=== PATIENT | female | born 1950 | race Caucasian/White ===

== ENCOUNTER 2024-03-31 13:37 | Outpatient (CLI) | payer MEDICARE, SELFPAY ==
--- NOTE | ~2024-03-31 | DEXA_ITS ---
Bone Density Report Name: MARIVEL WISEMAN Age: 73 Sex: Female Ethnicity: White Date of : 1950 Indication: postmenopausal; screening for osteoporosis; parental hip fracture; Referring Provider: BRIANA FERNANDEZ Study: Bone densitometry was performed. Exam Date: March 31, 2024 Accession number: [id number] Bone Density: Region BMD T-score Z-score Classification AP Spine(L1-L4) 0.811 -2.1 0.1 Osteopenia Femoral Neck (Left) 0.732 -1.1 0.9 Osteopenia Total Hip (Left) 0.780 -1.3 0.4 Osteopenia Femoral Neck (Right) 0.698 -1.4 0.6 Osteopenia Total Hip (Right) 0.854 -0.7 1.0 Normal Total Hip Mean 0.817 -1.0 0.7 Normal World Health Organization criteria for BMD impression classify patients as: Normal (T-score at or above -1.0), Osteopenia (T-score between -1.0 and -2.5), or Osteoporosis (T-score at or below -2.5). 10-year Fracture Risk: FRAX not reported because: Treated for osteoporosis Clinical Information Provided by Patient: Parent has had a hip fracture Is being treated for osteoporosis Has used the following medications: Boniva (i.e. ibandronate), Vitamin D, Calcium Patient maximum height was 65 Menopause Age: 50 Drinks caffeinated beverages Onset of menses at age 16 Number of children 2 Missed period for more than 6 months in a row Impression: The patient has low bone mass, based on the Total Spine T-score. The patient has risk factors, including: parental hip fracture. Discussion: It is important to ask patients whether they are taking their medications and to encourage continued and appropriate compliance with their osteoporosis therapies to reduce fracture risk. It is also important to review their risk factors and encourage appropriate calcium and vitamin D intakes, exercise, fall prevention and other lifestyle measures. Follow-Up: Consider a repeat BMD and Vertebral Fracture Assessment (VFA) exam in 2 years or sooner if medically necessary, to reassess this patient's status. Reported by: LUL on 03/31/2024 2:24:00 PM. Reviewed, dictated and finalized at location [facility]
--- OUTSIDE RECORDS SUMMARY | 2024-03-31 14:29 | XMS_ITS | Encounter Summary ---
Author Organization [facility] Address [address] [facility] [place] [address] [place] [address] Care Team Providers Care Mva Reactor Operator Head Name Role Phone Christina Solis NP Primary Care Provider [phone] Michael Rodriguez MD Unavailable Lanie Razo [facility] Primary Care Provider + Lanie Razo [facility] Primary Care Provider + Encounter Details Date Type Department Care Team (Late st Contact Info) Description 10/03/2019 Prep for Procedure [facility] [place], [place] [id number] Vadim Wyatt MD [address] [id number] Social History Tobacco Use Types Packs/Day Years Used Date Smoking Tobacco: Former Cigarettes Q uit: 1994 Smokeless Tobacco: Never Alcohol Use Standard Drinks/Week Comments No 0 (1 standard drink = 0.6 oz pur e alcohol) AUDIT-C Answer Date Recorded Frequency of Alcohol Consumption Never 02/03/2019 Average Number of Drinks Not on file 019 Frequency of Binge Drinking Not on file 04/2018 Comments Unknown Sex and Gender Information Value Date Recorded Sex Assigned at Not on file Legal Sex Female 5:04 PM CDT Gender Identity Not on file Sexual Orientation Not on file Occupation Industry Job Start Date Job End Date Not on file Not on file Not on file Not on file Not on file Not on file Not on file Not on file COVID-19 Exposure Response Date Recorded In the last month, have you been in contact with someone who was confirmed or suspected to have Coronavirus / COVID-19? No / Unsure 10/06/2019 8:33 AM CDT documented as of this encounter Plan of Treatment Upcoming Encounters Date Type Department Care Team (Late st Contact Info) Description 04/14/2024 12:15 PM SLING OPERATOR Office Visit [facility] THREE [facility] [address] [facility] [address] [place], [place] [id number] Bob Hinton NP Three [facility] [address] [place], [place] [id number] documented as of this encounter Results * PRE-SURGICAL/PRE-PROCEDURE CORONAVIRUS (COVID 19) (10/03/2019 2:00 PM CDT) Pathologist [facility] CORONAVIRUS SARS COV 2 PCR (RESP) NOT DETECTED NOT DETECTED 10/05/2019 10:52 AM CDT [facility] Comment: A Not Detected (negative) test result for this test means that SARS- CoV-2 RNA was not present in the specimen above the limit of detection. A negative result does not rule out the possibility of COVID-19 and should not be used as the sole basis for treatment or patient management decisions. ??If COVID-19 is still suspected, based on exposure history together with other clinical findings, re-testing should be considered in consultation with public health authorities. Laboratory test results should always be considered in the context of clinical observations and epidemiological data in making a final diagnosis and patient management decisions. Please review the Fact Sheets and FDA authorized labeling available for health care providers and patients using the following websites: https://www.[employer].com/home/Covid-19/HCP/Quest[employer]/fact- sheet.html https://www.[employer]/home/Covid-19/Patients/ Quest[employer]/fact-sheet.html This test has been authorized by the FDA under an Emergency Use Authorization (EUA) for use by authorized laboratories. Due to the current public health emergency, [facility] is receiving a high volume of samples from a wide variety of swabs and media for COVID-19 testing. In order to serve patients during this public health crisis, samples from appropriate clinical sources are being tested. Negative test results derived from specimens received in non-commercially manufactured viral collection and transport media, or in media and sample collection kits not yet authorized by FDA for COVID-19 testing should be cautiously evaluated and the patient potentially subjected to extra precautions such as additional clinical monitoring, including collection of an additional specimen. Methodology: ??Nucleic Acid Amplification Test (NAAT) includes PCR or TMA Additional information about COVID-19 can be found at the [facility] website: www.[employer]/Covid19. Test performed at [facility] [place] [id number] [place] [address] ??[id number] Director: MADISON WELLINGTON DO,MPH NASOPHARYNGEAL SWAB / Unknown 10/03/2019 2:00 PM CDT us Vadim Wyatt MD MICROBIOLOGY - GENERAL SEPIDEH HEREDIA Final Result [facility] [address] [address], documented in this encounter Visit Diagnoses Diagnosis Encounter for screening colonoscopy- Primary Special screening for malignant neoplasms, colon documented in this encounter Additional Health Concerns Infection Onset Date Last Indicated Resolved Time COVID-19 Rule Out 10/03/2019 10/03/2019 10/05/2019 10:53 AM CDT documented as of this encounter Care Teams Mva Reactor Operator Head Relationship Specialty Start Date End Date Christina Solis NP [facility] [place] [address] PCP - General NURSE PRACTITIONER 01/24/19 01/02/22 Lanie Razo FNP- [address] [place] [id number] PCP - General NURSE PRACTITIONER 01/03/22 06/04/23 Lanie Razo, COIN MACHINE ASSEMBLER- [facility] [place] [address] PCP - General Nurse Practitioner Family 06/05/23 Michael Rodriguez MD [id number] [place] [address] EP Medical Assistant Ob Gyn CLINICAL CARDIAC ELECTROPHYSIOLOGY 01/27/19 documented as of this encounter
--- OUTSIDE RECORDS SUMMARY | 2024-03-31 14:29 | XMS_ITS | Clinical Summary ---
Author Organization [facility] Address [address] [facility] [place] [address] [place] [address] Care Team Providers Care Hot Dog Vendor Name Role Phone Michael Rodriguez MD Unavailable Lanie Razo [facility] Primary Care Provider + Allergies Active Allergy Reactions Criticality Noted Date Comments Amitriptyline Unknown 01/20/2022 Gabapentin Unknown 01/20/2022 Nickel Itching Low 09/29/2021 Nsaids Other (see comment) 10/18/2011 H/O IRRITATED STOMACH AND DIGESTIVE TRACT Promethazine Other (see comment) Low 08/18/2021 Restless legs RSL Medications celecoxib 100 MG capsule Take 1 capsule by mouth 2 (two) times a day. 9 Active esomeprazole 40 MG capsule Take 1 capsule by mouth daily as needed. 9 Active ezetimibe 10 MG tablet Take 1 tablet by mouth every evening. 9 Active traMADol 50 MG tablet Take 50 mg by mouth 2 (two) times a day. Active ibandronate (BONIVA) 150 MG tablet ibandronate 150 mg tablet Active aspirin EC (ECOTRIN) 81 MG tablet Take 1 tablet (81 mg total) by mouth daily. 100 tablet 2 Active atorvastatin (LIPITOR) 40 MG tablet TAKE 1 TABLET(40 MG) BY MOUTH EVERY NIGHT AT BEDTIME 90 tablet 1 3 Active alendronate (FOSAMAX) 70 MG tablet Take 1 tablet (70 mg total) by mouth once a week. 4 Active losartan (COZAAR) 100 MG tablet Take 1 tablet (100 mg total) by mouth daily. NEW DOSE 90 tablet 1 4 Active metoprolol succinate ER (TOPROL-XL) 25 MG 24 hr tablet Take 1 tablet (25 mg total) by mouth daily. Dose increased 07/24/23 90 tablet 1 4 Active tiZANidine (ZANAFLEX) 4 MG tablet Take 1 tablet (4 mg total) by mouth as needed. 4 Active zolpidem (AMBIEN) 5 MG tablet Take 1 tablet (5 mg total) by mouth nightly as needed. 4 Active DULoxetine (CYMBALTA) 60 MG capsule Take 1 capsule (60 mg total) by mouth daily. 4 Active amLODIPine (NORVASC) 10 MG tablet TAKE 1 TABLET(10 MG) BY MOUTH DAILY 30 tablet 5 4 Active Active Problems Problem Noted Date Diagnosed Date Calcification of coronary artery 12/14/2021 Snoring 08/17/2021 Sinusitis 08/17/2021 Shoulder injury 08/17/2021 Primary fibromyalgia syndrome 08/17/2021 Osteopenia 08/17/2021 Osteoarthrosis 08/17/2021 Motion sickness 08/17/2021 Low back pain 08/17/2021 Fatigue 08/17/2021 Depressive disorder 08/17/2021 Arthritis of carpometacarpal (CMC) joint of left thumb 08/17/2021 Anxiety 08/17/2021 Solitary pulmonary nodule 11/09/2020 Osteoporosis 06/10/2020 Vulvovaginitis 12/10/2018 Acne 12/10/2018 Localized adiposity 06/28/2011 Lipoma of back 06/28/2011 Excess skin of abdomen 06/28/2011 Breast ptosis 06/28/2011 Sacroiliitis, not elsewhere classified 1 Palpitations Hyperlipidemia Hypertension GERD (gastroesophageal reflux disease) Immunizations Name Administration Dates Next Due COVID-19 Vaccine (Generic) 01/10/2022 Fluzone High Dose - >Age 65 (Prefilled Syringe) 12/09/2018,12/04/2017,12/26/2016 Influenza (Generic) 12/25/2013,12/20/2012 Influenza Adult (Generic) 12/13/2021,,12/06/2017,2015,12/10/2014 PFIZER COVID-19 (ORIGINAL FORMULATION, PURPLE CAP) mRNA, LNP-S, PF, 30 MCG/0.3 ML DOSE 05/03/2020 Pneumococcal (Pneumovax 23) 01/02/2020 Pneumococcal (Prevnar 13) 12/09/2018 Tdap (Generic) 12/25/2013 Family History Medical History Relation Comments Diabetes Brother Diabetes Father Heart Attack Father Afib Mother CHF Mother COPD Mother Diabetes Sister 1 Heart Attack Sister 1 Open Heart Sister 1 Stroke Sister 1 Heart Attack Sister 2 Relation Status Comments Brother Alive Father (Age 51) Maternal Grandfather Maternal Grandmother Mother (Age 92) Paternal Grandfather Paternal Grandmother Sister 1 (Age 67) Sister 2 Alive Social History Tobacco Use Types Packs/Day Years Used Date Smoking Tobacco: Former Cigarettes Q uit: 1994 Smokeless Tobacco: Never Tobacco Cessation:Counseling Given: Not Answered Alcohol Use Standard Drinks/Week Comments No 0 [...] file Not on file Not on file Last Filed Vital Signs Vital Sign Reading Time Taken Comments Blood Pressure 124/70 10/09/2023 1:31 PM CDT Pulse 73 10/09/2023 1:31 PM CDT Temperature 36.7 ??C (98 ??F) 10/06/2019 10:29 AM CDT Respiratory Rate 17 10/06/2019 10:29 AM CDT Oxygen Saturation 94% 10/09/2023 1:31 PM CDT Inhaled Oxygen Concentration - - Weight 76.2 kg (168 lb) 10/09/2023 1:31 PM CDT Height 165.1 cm (5' 5 ) 10/09/2023 1:31 PM CDT Body Mass Index 27.96 10/09/2023 1:31 PM CDT Plan of Treatment Upcoming Encounters Date Type Department Care Team (Late st Contact Info) Description 04/14/2024 12:15 PM COMMUNITY SUPPORT WORKER Office Visit [facility] [address] [facility] [address] [place] [place] [address] Bob Hinton, DYLAN [address] [place] [address] [place] [address] Health Maintenance Due Date Last Done Comments ASCVD Statin 1950 PHQ-2 (Physician [place]) 1962 Hepatitis C 1968 Zoster Vaccines (1 of 2) 2000 RSV Immunization or 60+ Years (1 - Risk 60-74 years 1-dose series) 2010 Annual Medicare Wellness Visit 12/24/2015 Dexa Scan (General) 12/24/2015 Mammogram Screening 04/30/2022 04/30/2020, 03/14/2019, 08/14/2017 COVID-19 Vaccine ( - season) 2023 01/10/2022, 05/03/2020 Influenza Adult (#1) 2023 12/13/2021, 12/02/2019, 12/09/2018, Additional history exists DTaP, Tdap and Td Vaccines (2 - Td or Tdap) 12/26/2023 12/25/2013 PHQ-2 (Physician [place]) 03/05/2024 Colorectal Cancer Screening Colonoscopy (10 Years) 10/05/2029 10/06/2019, 10/06/2019 Pneumococcal Vaccine: 65+ Years Completed 01/02/2020, 12/09/2018 Meningococcal B Vaccine Aged Out No l onger eligible based on patient's age to complete this topic Meningococcal Vaccine Aged Out No jenifer geno eligible based on patient's age to complete this topic RSV Immunizations Under 20 Months Aged Out No longer eligible based on patient's age to complete this topic Procedures Procedure Name Priority Date/Time Associated Diagnosis Comments COLONOSCOPY Routine 10/06/2019 9:44 AM CDT from Last 3 Months or Most Recently Relevant to Health Maintenance Results * Colonoscopy (10/06/2019 9:44 AM CDT) Mindy Lagunas MD - 10/06/2019 9:44 AM CDT Mindy Wyatt MD ? 10/06/2019 10:08 AM MINDY WYATT MD, FACG, FACP COLONOSCOPY This is a 68-year-old female with history of Tonsillectomy, uterine polypectomy, bilateral carpal tunnel, breast lift, face lift, tummy tuck, HTN, HLN, anxiety, sleep issues, headaches chronic pain, fibromyalgia, IHSAN (no CPAP) and palpitations who now presents for colonoscopy to screening for colon cancer. ?? GI review of systems is negative. ??No endocarditis risk factors. Allergies Allergen Reactions ? ? Nsaids Other (see comment) ??H/O IRRITATED STOMACH AND DIGESTIVE TRACT Medications: see list. Family history: negative for colon cancer. WDWN patient in NAD. VITALS: Stable. LUNGS: Clear. HEART: RRR S1/S2 normal. ABDOMEN: NABS/NT. The procedure of colonoscopy, ??its indications, ??alternatives of barium studies and risks including perforation, bleeding, infection, reaction to medication as well as the possible need for blood or surgery were discussed with the patient prior to the procedure. The patient voices understanding, agrees to proceed and provides informed consent. COLONOSCOPY INDICATION: Screening for colon cancer. ?? POST-OP: One polyp removed. SEDATION: Per Anesthesia PREP: Good. With the patient in the left lateral decubitus position, the Olympus [id number] ??colonoscope was introduced into the rectum and advanced easily to the Terminal Ileum. Careful inspection of the mucosa was made upon insertion and withdrawal of the endoscope. FINDINGS: Terminal ileum: distal 5 cm normal. Cecum, ascending colon, descending colon, sigmoid colon and rectum including retroflexion normal. Transverse colon: 7 mm sessile polyp removed with cold biopsy forceps. No masses, AVMs, colitis or diverticulosis seen. No complications, blood loss or implants. ASSESSMENT AND PLAN: One polyp removed: if adenomatous repeat colonoscopy in five years otherwise screening colonoscopy in 10 years. Thank you for allowing me to care for your patient. She will follow-up with DYLAN Solis as needed. Mindy Wyatt M.D. us Mindy Wyatt MD GI PROCEDURE ORDERABLES Fin al Result from Last 3 Months or Most Recently Relevant to Health Maintenance Insurance AETNA AETNA Care Teams Hot Dog Vendor Relationship Specialty Start Date End Date Lanie Razo, TRUCK LOADER OVERHEAD CRANE- [facility] [place] [address] PCP - General Nurse Practitioner Family 06/05/23 Michael Rodriguez MD [facility] [address] [place] [address] EP Geriatric Physical Therapist CLINICAL CARDIAC ELECTROPHYSIOLOGY 01/27/19
--- OUTSIDE RECORDS SUMMARY | 2024-03-31 14:30 | XMS_ITS | Clinical Summary ---
Author Organization [facility] Address [address] [facility] [place] [address] Care Team Providers Care Group Exercise Class Instructor Name Role Phone Violette Jones MD Primary Care Provider [phone] [facility],non-owned Affiliates and Associated Physician Practices is amultiple site organization consisting of ambulatory clinics and hospital sitesin [place], [place], [place] and [place]. This disclosure is being madepursuant to the Care Everywhere program and may not contain all information available regarding this patient. Last updated 17.[employer] [facility] Allergies No known active allergies Medications * Be aware that medications may not be up to date on this document. Alwaysverify current medications with the patient. Medication Sig Dispensed Refills Start Date End Date Status TRAMADOL HCL PO Take 50 mg by mouth 3 times daily as needed. Active Cyclobenzaprine HCl (FLEXERIL PO) Active DULoxetine HCl (CYMBALTA PO) Take 60 mg by mouth once. Active Ezetimibe-Simvastatin (VYTORIN PO) Active RAMIPRIL PO Take 2.5 mg by mouth once. Active Esomeprazole Magnesium (NEXIUM PO) Active Flaxseed, Linseed, (FLAXSEED OIL PO) Active Multiple Vitamin (MULTI-VITAMIN PO) Active Calcium Carbonate-Vit D-Min (CALCIUM 1200 PO) A ctive Cyanocobalamin (VITAMIN B-12 PO) Active Cholecalciferol (VITAMIN D3 PO) Active Active Problems Problem Noted Date Diagnosed Date Sacroiliitis, not elsewhere classified 1 Social History Tobacco Use Types Packs/Day Years Used Date Smoking Tobacco: Never Alcohol Use Standard Drinks/Week Comments No 0 (1 standard drink = 0.6 oz pur e alcohol) Sex and Gender Information Value Date Recorded Sex Assigned at Not on file Gender Identity Not on file Sexual Orientation Not on file Last Filed Vital Signs Vital Sign Reading Time Taken Comments Blood Pressure 126/84 03/24/2011 2:04 PM FINE DINING SERVER Pulse 90 03/24/2011 2:04 PM FINE DINING SERVER Temperature 36.8 ??C (98.3 ??F) 03/24/2011 2:04 PM CS T Respiratory Rate 16 03/24/2011 2:04 PM FINE DINING SERVER Oxygen Saturation 100% 03/24/2011 2:04 PM FINE DINING SERVER Inhaled Oxygen Concentration - - Weight 74.8 kg (165 lb) 03/03/2011 2:24 PM FINE DINING SERVER Height 165.1 cm (5' 5 ) 03/03/2011 2:24 PM FINE DINING SERVER Body Mass Index 27.46 03/03/2011 2:24 PM FINE DINING SERVER Plan of Treatment Health Maintenance Due Date Last Done Comments BONE DENSITY TESTING 1950 COLOGUARD (AGES 45-75) - COL ON CA SCREENING 1950 COLON MONITORING 1950 COLONOSCOPY - COLON CA SCREENING 1950 CT COLONOGRAPHY - COLON CA SCREENING 1950 Colorectal Cancer Screening 1950 FIT - COLON CA SCREENING 1950 FLEX SIG - COLON CA SCREENING 1950 MAMMOGRAM 1950 HEPATITIS C SCREENING 12/18/1968 DTAP/TDAP/TD VACCINES (1 - Tdap) 1969 PNEUMOCOCCAL VACCINE 50+ (1 of 1 - PCV) 2000 ZOSTER VACCINE (1 of 2) 2000 COVID-19 VACCINE ( - 2023-2 5 season) 2023 INFLUENZA VACCINE (#1) 2023 DEPRESSION SCREENING 03/05/2024 Respiratory Syncytial Virus (RSV) Vaccine Pt: or over 60 yrs (1 - 1-dose 75+ series) 2025 HEPATITIS B VACCINE Aged Out No longe r eligible based on patient's age to complete this topic HIB VACCINE Aged Out No longer eligi ble based on patient's age to complete this topic HPV VACCINE Aged Out No longer eligi ble based on patient's age to complete this topic MENINGOCOCCAL (Group B) VACCINE Aged Out No longer eligible based on patient's age to complete this topic MENINGOCOCCAL VACCINE Aged Out No jenifer geno eligible based on patient's age to complete this topic Care Teams Group Exercise Class Instructor Relationship Specialty Start Date End Date Violette Jones MD [address] [address] PCP - General Family Medicine 02/14/11
--- OUTSIDE RECORDS SUMMARY | 2024-03-31 14:30 | XMS_ITS | CONTINUITY OF CARE DOCUMENT ---
Author Name zoila cummings Address Unknown Organization [facility] Address [address] [facility] [address] [place] [address] Phone [phone] Care Team Providers Care Associate Professor Physician Name Role Phone Melissa WAHL, [facility] Unavailable [phone] ADARSH CARROLL MD Unavailable ADARSH CARROLL MD Unavailable [phone] INSURANCE PROVIDERS Payer name Policy type / Coverage type [employer] party ID [facility] [id number] 1
--- OUTSIDE RECORDS SUMMARY | 2024-03-31 14:30 | XMS_ITS | Patient Health Summary ---
Author Organization [facility] Address [address] [place] [address] Care Team Providers Care Lumber Scaler Name Role Phone Violette Jones MD Primary Care Provider [phone] Note from [facility],non-owned Affiliates and Associated Physician Practices is amultiple site organization consisting of ambulatory clinics and hospital sitesin [place], [place], [place] and [place]. This disclosure is being madepursuant to the Care Everywhere program and may not contain all information available regarding this patient. Last updated 17.[facility] Allergies No known active allergies Medications * Be aware that medications may not be up to date on this document. Alwaysverify current medications with the patient. * TRAMADOL HCL PO Take 50 mg by mouth 3 times daily as needed. * Cyclobenzaprine HCl (FLEXERIL PO) * DULoxetine HCl (CYMBALTA PO) Take 60 mg by mouth once. * Ezetimibe-Simvastatin (VYTORIN PO) * RAMIPRIL PO Take 2.5 mg by mouth once. * Esomeprazole Magnesium (NEXIUM PO) * Flaxseed, Linseed, (FLAXSEED OIL PO) * Multiple Vitamin (MULTI-VITAMIN PO) * Calcium Carbonate-Vit D-Min (CALCIUM 1200 PO) * Cyanocobalamin (VITAMIN B-12 PO) * Cholecalciferol (VITAMIN D3 PO) Active Problems Problem Noted Date Diagnosed Date [...] Comments Blood Pressure 126/84 03/24/2011 2:04 PM MOLDER BENCH Pulse 90 03/24/2011 2:04 PM MOLDER BENCH Temperature 36.8 ??C (98.3 ??F) 03/24/2011 2:04 PM CS T Respiratory Rate 16 03/24/2011 2:04 PM MOLDER BENCH Oxygen Saturation 100% 03/24/2011 2:04 PM MOLDER BENCH Inhaled Oxygen Concentration - - Weight 74.8 kg (165 lb) 03/03/2011 2:24 PM MOLDER BENCH Height 165.1 cm (5' 5 ) 03/03/2011 2:24 PM MOLDER BENCH Body Mass Index 27.46 03/03/2011 2:24 PM MOLDER BENCH Procedures * PAIN MANAGEMENT PROCEDURE TIME(Performed 03/24/2011) * PAIN MANAGEMENT PROCEDURE TIME(Performed 03/03/2011) * EMG WITH NERVE CONDUCTION STUDY(Performed 02/24/2011) Performed for Intractable neuropathic pain of lower extremity Results * PAIN MANAGEMENT PROCEDURE TIME (03/24/2011 3:05 PM MOLDER BENCH) Only the most recent of2 resultswithin the time period is included. Anatomical Region Laterality Modality X-Ray Angiograph y Narrative 03/24/2011 6:02 PM MOLDER [facility]ENCH Sidra Saxenaaniel, RT(R) ? 03/24/2011 ??3:26 PM Fluoroscopically Guided Bilateral Sacroiliac Joint Injections The patient was identified in the holding area and the operative permit was explained and signed. I have discussed with the patient the risks, benefits, side effects and complications of a fluoroscopically guided sacroiliac joint injection. I have answered the patient's questions regarding the procedure and have given the patient the opportunity to refuse the procedure. I also have discussed alternative methods of treatment. The patient stated understanding of the procedure and wished to proceed with a fluoroscopically guided sacroiliac joint injection. The patient was taken to the fluoroscopic suite and placed on a C-arm table in the prone position and appropriate monitoring placed. A nurse was in attendance for the duration of the procedure to carefully monitor the patient. Please refer to the nursing record for vital sign documentation and for any doses of sedatives and medications. I was present and gave the order for any medications given to the patient. This procedure was performed on the bilateral sacroiliac joints. A sterile Betadine preparation and then a sterile drape were applied to the lumbosacral region of the back overlying the sacroiliac joint. Using fluoroscopic guidance, the sacroiliac joint was visualized in the AP oblique direction. A 22 gauge, 3.5-inch needle was placed in the inferior aspect of the sacroiliac joint. Next 1 cc of Omnipaque (240 mg/cc) was injected and intra-articular spread was confirmed under direct fluoroscopy. There was no evidence of intravascular or epidural spread. A preservative free mixture of 3 cc of 0.25% Bupivacaine and 40 mg of DepoMedrol 40 mg/cc was injected into the left sacroiliac joint. The needle was removed intact. Attention was then turned to the contralateral side where the procedure was repeated in an identical fashion. The patient tolerated the procedure well and there were no complications. The patient was taken to the recovery area. The patient remained in stable condition with no apparent complications. Post procedure instructions were given to the patient and a follow up appointment was confirmed. The patient was also discharged with information on how to reach the clinic or section crews activities clerk physician at anytime for questions or complaints. The patient was identified in the holding area and the operative permit was explained and signed. I have discussed with the patient the risks, benefits, side effects and complications of trigger point injections. I have answered the patient's questions regarding the procedure and have given the patient the opportunity to refuse the procedure. I also have discussed alternative methods of treatment. The patient stated understanding of the procedure and wished to proceed with trigger point injections. The patient was positioned on the table table in the prone position. The trigger points in the musculature was identified. Using a 27-gauge 1.5 inch needle, I injected 1 cc of a mixture of 5 cc of 1% lidocaine and 5 cc of 0.25% bupivacaine into the following muscles: erector spinae and gluteus minimus. The patient tolerated the procedure and no complications. Patient was given discharge instructions. Procedure Note Makeda Sidra, RT(R) - 03/24/2011 3:25 PM CST Fluoroscopically Guided Bilateral Sacroiliac Joint Injections The patientwas identified in the holding area and the operative permit was explainedand signed. I have discussed with the patient the risks, benefits, sideeffects and complications of a fluoroscopically guided sacroiliac jointinjection. I have answered the patient's questions regarding the procedureand have given the patient the opportunity to refuse the procedure. I alsohave discussed alternative methods of treatment. The patient statedunderstanding of the procedure and wished to proceed with afluoroscopically guided sacroiliac joint injection. The patient was takento the fluoroscopic suite and placed on a C-arm table in the proneposition and appropriate monitoring placed. A nurse was in attendance forthe duration of the procedure to carefully monitor the patient. Pleaserefer to the nursing record for vital sign documentation and for any dosesof sedatives and medications. I was present and gave the order for anymedications given to the patient. This procedure was performed on thebilateral sacroiliac joints. A sterile Betadine preparation and then asterile drape were applied to the lumbosacral region of the back overlyingthe sacroiliac joint. Using fluoroscopic guidance, the sacroiliac jointwas visualized in the AP oblique direction. A 22 gauge, 3.5-inch needlewas placed in the inferior aspect of the sacroiliac joint. Next 1 cc ofOmnipaque (240 mg/cc) was injected and intra- articular spread wasconfirmed under direct fluoroscopy. There was no evidence of intravascularor epidural spread. A preservative free mixture of 3 cc of 0.25%Bupivacaine and 40 mg of DepoMedrol 40 mg/cc was injected into the leftsacroiliac joint. The needle was removed intact. Attention was then turnedto the contralateral side where the procedure was repeated in an identicalfashion. The patient tolerated the procedure well and there were nocomplications. The patient was taken to the recovery area. The patientremained in stable condition with no apparent complications. Postprocedure instructions were given to the patient and a follow upappointment was confirmed. The patient was also discharged withinformation on how to reach the clinic or section crews activities clerk physician at anytimefor questions or complaints. The patient was identified in the holding area and the operative permitwas explained and signed. I have discussed with the patient the risks,benefits, side effects and complications of trigger point injections. Ihave answered the patient's questions regarding the procedure and havegiven the patient the opportunity to refuse the procedure. I also havediscussed alternative methods of treatment. The patient statedunderstanding of the procedure and wished to proceed with trigger pointinjections. The patient was positioned on the table table in the proneposition. The trigger points in the musculature was identified. Using q00-mksht 1.5 inch needle, I injected 1 cc of a mixture of 5 cc of 1%lidocaine and 5 cc of 0.25% bupivacaine into the following muscles:erector spinae and gluteus minimus. The patient tolerated the procedureand no complications. Patient was given discharge instructions. Claudy Pina MD DIAGNOSTIC IMAGIN G ORDERABLES * EMG WITH NERVE CONDUCTION STUDY (02/24/2011) Destin Burdick MD NEUROLOGY [facility] Teams Lumber Scaler Relationship Specialty Start Date End Date Violette Jones MD [address] [place] [address] [phone] PCP - General Family Medicine 02/14/11
--- OUTSIDE RECORDS SUMMARY | 2024-03-31 14:30 | XMS_ITS | Encounter Summary ---
Author Organization [facility] Address [address] [place] [address] [place] [address] Care Team Providers Care Motorcycle Delivery Driver Name Role Phone Michael Rodriguez MD Unavailable [facility] Primary Care Provider + Encounter Details Date Type Department Care Team (Late st Contact Info) Description 07/13/2023 Triparazzi Message Enc [facility], [address] [place], [place] [id number] Mel Etienne FNP [address] [facility] [address] [place], [place] [id number] Blood pressure readings after increasing amlodapine to 5mg. Social History Tobacco Use Types Packs/Day Years [...] file Not on file Not on file documented as of this encounter Progress Notes * ML Romo - 07/13/2023 12:29 PM CDT Guyy Ilsa her BP still above goal. Lets have her maximize her amlodipine. She has a 2.5 mg pills but is supposed to be taking 5 mg. I want her to take 10 mg daily. We can call in a new prescription with the 10 mg tablets for her thanks * Ilsa Fine RN - 07/13/2023 11:57 AM CDT See below and respond to patient thank you documented in this encounter Plan of Treatment Upcoming Encounters Date Type Department Care Team (Late st Contact Info) Description 04/14/2024 12:15 PM REGULATION SUPERVISOR Office Visit [facility] [facility], [facility] [address] [place] [address] Bob Hinton, DYLAN [facility] [address] [place] [address] documented as of this encounter Visit Diagnoses Not on filedocumented in this encounter Care Teams Motorcycle Delivery Driver Relationship Specialty Start Date End Date Lanie Razo, ML- [address] [place] [phone] PCP - General Nurse Practitioner Family 06/05/23 Michael Rodriguez MD [facility]. [facility] [address] [place] [address] EP Insurance Loss Assessor CLINICAL CARDIAC ELECTROPHYSIOLOGY 01/27/19 documented as of this encounter
--- OUTSIDE RECORDS SUMMARY | 2024-03-31 14:30 | XMS_ITS | Clinical Summary ---
Author Organization [facility] Address [address] [place] [address] Phone Care Team Providers Care Per Diem Physical Therapist Name Role Phone Unavailable Primary Care Provider Unavailabl e Allergies Active Allergy Reactions Criticality Noted Date Comments Nickel Itching Low 09/29/2021 Nsaids (Non-Steroidal Anti-Inflammatory Drug) Other (See Comments) 10/18/2011 H/O IRRITATED STOMACH AND DIGESTIVE TRACT Phenergan Plain Other (See Comments) 09/29/2021 RSL Medications traMADol (ULTRAM) 50 mg Oral tablet Take 50 mg by mouth. PRN Active cyclobenzaprine (FLEXERIL) 5 mg Oral Tab Take 5 mg by mouth 3 times daily as needed. Active ALPRAZolam (XANAX) 0.5 mg Oral tablet Take 0.5 mg by mouth nightly as needed. Active DULoxetine (CYMBALTA) 60 mg Oral CpDR Take 60 mg by mouth daily. Active cyanocobalamin 1,000 mcg Oral Tab Take 1,000 mcg by mouth daily. Active esomeprazole (NEXIUM) 20 mg Oral CpDR Take 20 mg by mouth nightly as needed. Active polycarbophil calcium (FIBERCON) 625 mg Oral tablet Take 625 mg by mouth daily. Active EZETIMIBE/SIMVA STATIN (VYTORIN 10-20 ORAL) Take by mouth daily at bedtime. Active ramipril (ALTACE) 10 mg Oral capsule Take 10 mg by mouth daily. Active pregabalin (LYRICA) 75 mg Oral Cap Take 75 mg by mouth every 12 hours. Active vitamin B complex Tablet Take 1 Tab by mouth daily. Active multivitamin (DAILY-HILARIO) Oral tablet Take 1 Tab by mouth daily. Active ascorbic acid (VITAMIN C) 500 mg Oral tablet Take 1,000 mg by mouth daily. Active cholecalciferol , Vitamin D3, (VITAMIN D3) 1,000 unit Oral Cap Take by mouth daily. Active OTHER Provider please include Medication name, dose, route and frequency- NASAL SPRAY ; 2 SPRAYS PRN Active oxyCODONE-aceta minophen (PERCOCET) 5-325 mg Oral tablet Take 1 Tab by mouth every 4 hours as needed for Pain, Moderate (For Pain Scale 4-6). 30 Tab 0 2 Active diazepam (VALIUM) 2 mg Oral tablet Take 1 Tab by mouth every 6 hours as needed for Spasm. 20 Tab 1 2 Active cephALEXin (KEFLEX) 500 mg Oral capsule Take 1 Cap by mouth 4 times daily. 20 Cap 0 2 Active metoprolol tartrate (LOPRESSOR) 25 mg tablet Take 25 mg by mouth daily. Active celecoxib (CeleBREX) 100 mg capsule Take 100 mg by mouth 2 times daily. Active phenazopyridine HCl (AZO ORAL) Take by mouth 2 times daily. Active docusate sodium (COLACE ORAL) Take by mouth 1 time daily as needed. 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 Gender Identity Not on file Sexual Orientation Not on file Occupation Industry Job Start Date Job End Date Not on file Not on file Not on file Not on file Last Filed Vital Signs Vital Sign Reading Time Taken Comments Blood Pressure 155/89 10/21/2021 6:40 PM CDT Pulse 72 10/21/2021 6:40 PM CDT Temperature 36.2 ??C (97.2 ??F) 10/21/2021 6:40 PM CD T Respiratory Rate 18 10/21/2021 6:40 PM CDT Oxygen Saturation 97% 10/21/2021 6:40 PM CDT Inhaled Oxygen Concentration - - Weight 73.3 kg (161 lb 9.6 oz) 10/21/2021 10:03 AM CDT Height 165.1 cm (5' 5 ) 10/21/2021 10:03 AM CDT Body Mass Index 26.89 10/21/2021 10:03 AM CDT Plan of Treatment Health Maintenance Due Date Last Done Comments COLORECTAL SCREENING 12/24/1995 Colorectal Cancer Screening 12/24/1995 FIT-DNA Q 3 years 12/24/1995 FIT/FOBT Q 1 year 12/24/1995 Flex Sig/CT Colonography Q 5 years 12/24/1995 ZOSTER VACCINE (1 of 2) 2000 OSTEOPOROSIS SCREENING 12/24/2015 BREAST CANCER SCREENING 03/14/2020 03/14/19, 08/14/2017, 05/22/2014 PNEUMOCOCCAL VACCINE 65+ YEA RS (2 of 2 - PCV) 01/01/2021 01/02/2020 INFLUENZA VACCINE (#1) 2023 , 12/06/2017, 12/10/2015, Additional history exists DTAP/TDAP/TD VACCINES (2 - T d or Tdap) 12/26/2023 12/25/2013 RSV VACCINE (60+ or ) (1 - 1-dose 75+ series) 2025 Medical Devices Implanted Type Area Windows Laptop Technician Device Identifier Shelf Expiration Date Model / Serial / Lot Tooth-Lower Mouth Advance Directives For more information, please contact: [phone] * Full Code (Latest Code Status on File) Date Activated Date Inactivated Comments 10/21/2021 4:24 PM 10/21/2021 9:43 PM * Full Code Date Activated Date Inactivated Comments 10/21/2021 10:17 AM 10/21/2021 4:24 PM * Full Code Date Activated Date Inactivated Comments 10/23/2011 2:56 PM 10/23/2011 8:54 PM * Full Code Date Activated Date Inactivated Comments 10/23/2011 1:13 PM 10/23/2011 2:56 PM * Full Code Date Activated Date Inactivated Comments 10/23/2011 11:10 AM 10/23/2011 1:13 PM
--- OUTSIDE RECORDS SUMMARY | 2024-03-31 14:30 | XMS_ITS | Data Portability ---
Author Organization [place] [facility] [employer], Main Office Address [address] [place] [address] Assessment No assessment recorded. Plan of Treatment Reminders Order Date Submit Date Provider Last Modified By Organization Details Last Modified Time Details Appointments None recorded. Lab None recorded. Referral None recorded. Procedures None recorded. Surgeries None recorded. Imaging US, abdomen + pelvis - lower abdomen bilateral lumps- tender to touch, large and small on left and large on right. Hernias? Cyst? 2022 023 [email or web address] Not available 3 10:33:15 Medication Orders Solu-Medrol (PF) 125 mg/2 mL solution for injection 2022 023 Not available 3 14:08:34 celecoxib 100 mg capsule 2022 023 [email or web address], [address], [place], [place], [id number], 3 14:52:04 tramadol 50 mg tablet 2022 023 [email or web address], [address], [place], [place], [id number], 3 14:52:06 atorvastati n 40 mg tablet 2022 023 [email or web address], [address], [place], [place], [id number], 3 14:52:05 tramadol 50 mg tablet 2022 023 [email or web address] #[email or web address], [address], [place], [place], [id number], 14:37:37 celecoxib 100 mg capsule 2022 023 [email or web address], [address], [place], [place], [id number], 14:37:35 Patient TargetsNo targets recorded. Patient Instructions Encounter Date Encounter Id Patient Instructions Last Modified By Organization Details Last Modified Time 08/24/2022 [id number] Fu in 6 mo for check up htn, lipid, osteoarthritis, osteopenia, gerd, depression/anxiet y. Not available 08/24/2022 14:53:37 02/22/2023 [id number] Fu in 6 mo for check up htn, lipid, osteoarthritis, osteopenia, gerd, depression/anxiet y. 02/22/23 pt aware of Jim departure. Not available 02/22/2023 14:37:05 Reason for Referral None Reported. Results Created Date Observation Date Name Description Value Unit Range Abnormal Flag Note LastModifiedBy Organization Detail LastModifiedTime 06/06/1906/05/2022 CBC W/O DIFFE RENTI AL white blood cells 5.3 x10'3 /uL 4.2-10 .8 Not Available [facility] (Lab) [address] [place], [address], 06/05/2022 20:51:16 06/06/19 23 06/05/2022 CBC W/O DIFFE RENTI AL red blood cells 4.92 x10'6 /uL 3.80-5 .20 Not Available [facility] (Lab) [address] [place], [address], 06/05/2022 20:51:16 06/06/19 23 06/05/2022 CBC W/O DIFFE RENTI AL hemoglobin 14.1 g/dL 12.0-1 5.6 Not Available [facility] (Lab) [address] [place], [address], 06/05/2022 20:51:16 06/06/19 23 06/05/2022 CBC W/O DIFFE RENTI AL hematocrit 43.9 % 35.7-4 5.7 Not Available [facility] (Lab) [address] [place], [address], 06/05/2022 20:51:16 06/06/19 23 06/05/2022 CBC W/O DIFFE RENTI AL mean red cell volume 89.2 fL 82.0-9 9.0 Not Available [facility] (Lab) [address] [place], [address], 06/05/2022 20:51:16 06/06/19 23 06/05/2022 CBC W/O DIFFE RENTI AL mean red cell hemoglobin 28.7 pg 27.0-3 3.0 Not Available [facility] (Lab) [address] [place], [address], 06/05/2022 20:51:16 06/06/19 23 06/05/2022 CBC W/O DIFFE RENTI AL mean RBC HGB concentratio n 32.1 g/dL 31.0-3 6.0 Not Available [facility] (Lab) [address] [place], [address], 06/05/2022 20:51:16 06/06/19 23 06/05/2022 CBC W/O DIFFE RENTI AL red cell distribution width 13.5 % 11.8-1 5.5 Not Available [facility] (Lab) [address] [place], [address], 06/05/2022 20:51:16 06/06/19 23 06/05/2022 CBC W/O DIFFE RENTI AL platelets 250 x10'3 /uL 150-40 0 Not Available [facility] (Lab) [address] [place], [address], 06/05/2022 20:51:16 06/06/19 23 06/05/2022 CBC W/O DIFFE RENTI AL mean platelet volume 10.3 fL 9.0-12 .4 Not Available [facility] (Lab) [address] [place], [address], 06/05/2022 20:51:16 06/06/19 23 06/05/2022 BASIC METAB OLIC PANEL sodium 139 mmol/ L 137-14 5 Not Available [facility] (Lab) [address] [place], [address], 06/05/2022 21:27:48 06/06/19 23 06/05/2022 BASIC METAB OLIC PANEL potassium 4.2 mmol/ L 3.5-5. 1 Not Available [facility] (Lab) [address] [place], [address], 06/05/2022 21:27:48 06/06/19 23 06/05/2022 BASIC METAB OLIC PANEL chloride 104 mmol/ L 98-107 Not Available [facility] (Lab) [address] [place], [address], 06/05/2022 21:27:48 06/06/19 23 06/05/2022 BASIC METAB OLIC PANEL carbon dioxide 27 mmol/ L 22-30 Not Available [facility] (Lab) [address] [place], [address], 06/05/2022 21:27:48 06/06/19 23 06/05/2022 BASIC METAB OLIC PANEL anion gap 12.2 mmol/ L 14-22 low Not Available [facility] (Lab) [address] [place], [address], 06/05/2022 21:27:48 06/06/19 23 06/05/2022 BASIC METAB OLIC PANEL glucose 110 mg/dL 70-99 high Not Available [facility] (Lab) [address] [place], [address], 06/05/2022 21:27:48 06/06/1906/05/2022 BASIC METAB OLIC PANEL BUN 23 mg/dL 8-19 high Not Available [facility] (Lab) [address] [place], [address], 06/05/2022 21:27:48 06/06/1906/05/2022 BASIC METAB OLIC PANEL creatinine 0.62 mg/dL 0.66-1 .25 low Not Available [facility] (Lab) [address] [place], [address], 06/05/2022 21:27:48 06/06/1906/05/2022 BASIC METAB OLIC PANEL GFR >60 Refer ence Range : [place] ge GFR Healt hy Adult : >60 mL/mi n/1.7 3 m2 Chron ic Kidne y Disea se: 15-60 mL/mi n/1.7 3 m2 Kidne y Failu re: <15/m L/min /1.73 m2 www.n iddk. nih.g ov The MDRD study equat ion has not been valid ated in child lucio <18 years of age; pregn ant women ; the elder ly >85 years of age; or in some racia l or ethni c subgr oups, such as [facility] nics. Outsi de the valid ated concha eters , estim ated GFR is less accur ate, requi ring clini jay judgm ent on a case- by-ca se basis . Clini jay inter preta tion for other races and ages must be made by the clini tab. The MDRD study equat ion has not been valid ated for the evalu ation of serum creat inine relat ed to nutri yolanda l statu s or medic ation usage . For perso ns <18 years of age, a pedia tric GFR calcu lator is avail able on the [facility] websi te: https ://asa pérez.o rg/pr ofess ional s/kdo qi/gf r_cal culat or Not Available [facility] (Lab) [address] [place], [address], 06/05/2022 21:27:48 06/06/1906/05/2022 BASIC METAB OLIC PANEL calcium 8.6 mg/dL 8.4-10 .2 Not Available [facility] (Lab) [address] [place], [address], 06/05/2022 21:27:48 06/06/1906/05/2022 LIPID PANEL cholesterol 151 mg/dL 140-19 9 [facility] CHELSIE NSUS RECOM MENDA TION FOR VILMA STERO L: ADULT CHILD LOW RISK: <200 <170 BORDE RLINE : <200- 239 ----- HIGH RISK: >240 >200 Not Available [facility] (Lab) [address] [place], [address], 06/05/2022 21:27:54 06/06/1906/05/2022 LIPID PANEL triglyceride s 110 mg/dL 0-150 NIH CHELSIE NSUS REPOR T RECOM MENDA TION FOR TRIGL YCERI MICKY: ADULT CHILD LOW RISK: <150 ----- BODER LINE: 150-1 99 ----- HIGH RISK: >200 ----- Not Available [facility] (Lab) [address] [place], [address], 06/05/2022 21:27:54 06/06/19 23 06/05/2022 LIPID PANEL HDL cholesterol 51 mg/dL 40- Not Available [facility] (Lab) [address] [place], [address], 06/05/2022 21:27:54 06/06/1906/05/2022 LIPID PANEL LDL cholesterol, calculated 78 mg/dL 0-130 [facility] CHELSIE NSUS REPOR T RECOM MENDA TIONS FOR LDL: ADULT CHILD LOW RISK <130 <110 (OPTI MAL LDL) <100 ----- BORDE RLINE : 130-1 59 ----- HIGH RISK: >160 >130 A TRIGL YCERI DE RESUL T >400 INVAL IDATE S THE CALCU LATIO N FOR LDL FRACT IONAT ION - THE LDL RESUL T WILL NOT BE REPOR MYLES. Not Available [facility] (Lab) [address] [place], [address], 06/05/2022 21:27:54 06/06/19 23 06/05/2022 HEPAT IC/LI CHERYL PANEL alkaline phosphatase 114 U/L 38-126 Not Available [facility] (Lab) [address] [place], [address], 06/05/2022 21:27:58 06/06/19 23 06/05/2022 HEPAT IC/LI CHERYL PANEL alanine aminotransfe rase 39 U/L 0-[address] [facility] (Lab) [address] [place], [address], 06/05/2022 21:27:58 06/06/19 23 06/05/2022 HEPAT IC/LI CHERYL PANEL aspartate aminotransfe rase 38 U/L 15-[address] [facility] (Lab) [address] [place], [address], 06/05/2022 21:27:58 06/06/19 23 06/05/2022 HEPAT IC/LI CHERYL PANEL bilirubin, total 0.70 mg/dL 0.20-1 .30 Not Available [facility] (Lab) [address] [place], [address], 06/05/2022 21:27:58 06/06/19 23 06/05/2022 HEPAT IC/LI CHERYL PANEL bilirubin, conjugated (direct) 0.00 mg/dL 0.00-0 .30 Not Available [facility] (Lab) [address] [place], [address], 06/05/2022 21:27:58 06/06/19 23 06/05/2022 HEPAT IC/LI CHERYL PANEL biliurubin,u ncong. (indirect) 0.30 mg/dL 0.00-1 .1 Not Available [facility] (Lab) [address] [place], [address], 06/05/2022 21:27:58 06/06/19 23 06/05/2022 HEPAT IC/LI CHERYL PANEL total protein 6.9 g/dL 6.3-8. 2 Not Available [facility] (Lab) [address] [place], [address], 06/05/2022 21:27:58 06/06/19 23 06/05/2022 HEPAT IC/LI CHERYL PANEL albumin 4.0 g/dL 3.0-4. 4 Not Available [facility] (Lab) [address] [place], [address], 06/05/2022 21:27:58 06/06/19 23 06/05/2022 HEPAT IC/LI CHERYL PANEL globulin 2.9 g/dL 2.6-4. 2 Not Available [facility] (Lab) [address] [place], [address], 06/05/2022 21:27:58 06/06/19 23 06/05/2022 HEPAT IC/LI CHERYL PANEL A/G ratio 1.4 ratio 1.0-2. 0 Not Available [facility] (Lab) [address] [place], [address], 06/05/2022 21:27:58 06/06/19 23 06/05/2022 VITAM IN D 25-HY DROXY vd25oh 27.1 NG/mL 30-100 low Vitam in D Statu s: Defic ient: <20 ng/mL Insuf ficie nt: 20-29 ng/mL Suffi cient : 30-10 0 ng/mL Not Available [facility] (Lab) [address] [place], [address], 06/05/2022 21:34:03 06/06/19 23 06/05/2022 TSH W/REF DORA FT4 TSH with reflex free T4 1.100 uIU/m L 0.465- 4.680 Not Available [facility] (Lab) [address] [place], [address], 06/05/2022 21:56:14 06/06/19 23 06/05/2022 VITAM IN B12 (ALYCIA JOVANNY ) vb12 403 pg/mL 239-93 1 Not Available [facility] (Lab) [address] [place], [address], 06/05/2022 22:25:37 06/06/19 23 06/05/2022 FOLAT E, SERUM /PLAS MA folate 8.86 NG/mL 2.76-2 0.0 Not Available [facility] (Lab) [address] [place], [address], 06/05/2022 22:25:39 08/03/19 23 08/02/2022 RENAL FUNCT ION PANEL sodium 140 mmol/ L 137-14 5 Not Available [facility] (Lab) [address] [place], [address], 08/02/2022 20:36:28 08/03/19 23 08/02/2022 RENAL FUNCT ION PANEL potassium 4.1 mmol/ L 3.5-5. 1 Not Available [facility] (Lab) [address] [place], [address], 08/02/2022 20:36:28 08/03/19 23 08/02/2022 RENAL FUNCT ION PANEL chloride 101 mmol/ L 98-107 Not Available [facility] (Lab) [address] [place], [address], 08/02/2022 20:36:28 08/03/19 23 08/02/2022 RENAL FUNCT ION PANEL carbon dioxide 31 mmol/ L 22-30 high Not Available [facility] (Lab) [address] [place], [address], 08/02/2022 20:36:28 08/03/19 23 08/02/2022 RENAL FUNCT ION PANEL anion gap 12.1 mmol/ L 14-22 low Not Available [facility] (Lab) [address] [place], [address], 08/02/2022 20:36:28 08/03/19 23 08/02/2022 RENAL FUNCT ION PANEL glucose 121 mg/dL 70-99 high Not Available [facility] (Lab) [address] [place], [address], 08/02/2022 20:36:28 08/03/19 23 08/02/2022 RENAL FUNCT ION PANEL BUN 16 mg/dL 8-19 Not Available [facility] (Lab) [address] [place], [address], 08/02/2022 20:36:28 08/03/19 23 08/02/2022 RENAL FUNCT ION PANEL creatinine 0.71 mg/dL 0.66-1 .25 Not Available [facility] (Lab) [address] [place], [address], 08/02/2022 20:36:28 08/03/19 23 08/02/2022 RENAL FUNCT ION PANEL GFR >60 Refer ence Range : [place] ge GFR Healt hy Adult : >60 mL/mi n/1.7 3 m2 Chron ic Kidne y Disea se: 15-60 mL/mi n/1.7 3 m2 Kidne y Failu re: <15/m L/min /1.73 m2 www.n iddk. nih.g ov The MDRD study equat ion has not been valid ated in child lucio <18 years of age; pregn ant women ; the elder ly >85 years of age; or in some racia l or ethni c subgr oups, such as Hispa nics. Outsi de the valid ated concha eters , estim ated GFR is less accur ate, requi ring clini jay judgm ent on a case- by-ca se basis . Clini jay inter preta tion for other races and ages must be made by the clini tab. The MDRD study equat ion has not been valid ated for the evalu ation of serum creat inine relat ed to nutri yolanda l statu s or medic ation usage . For perso ns <18 years of age, a pedia tric GFR calcu lator is avail able on the [facility] websi te: https ://asa w.priscila beto.o rg/pr ofess ional s/kdo qi/gf r_cal culat or Not Available [facility] (Lab) [address] [place], [address], 08/02/2022 20:36:28 08/03/19 23 08/02/2022 RENAL FUNCT ION PANEL calcium 9.0 mg/dL 8.4-10 .2 Not Available [facility] (Lab) [address] [place], [address], 08/02/2022 20:36:28 08/03/19 23 08/02/2022 RENAL FUNCT ION PANEL phosphorus 4.1 mg/dL 2.5-4. 5 Not Available [facility] (Lab) [address] [place], [address], 08/02/2022 20:36:28 08/03/19 23 08/02/2022 RENAL FUNCT ION PANEL albumin 4.0 g/dL 3.0-4. 4 Not Available [facility] (Lab) [address] [place], [address], 08/02/2022 20:36:28 08/10/19 23 08/09/2022 HEMOG LOBIN A1C HA1C 5.5 % 4.0-6. 0 Diabe devyn Scree alcira Crite ag: <5.7% Consi stent with absen ce of diabe devyn 5.7-6 .4% Consi stent with incre ased risk for diabe devyn (pred iabet es) >OR=6 .5% Consi stent with diabe devyn REFER ENCE: Diabe devyn Care 2016, 39(Palomares ppl.1 ):s13 -s22 Not Available [facility] (Lab) [address], [place], [address], 08/09/2022 20:16:50 06/13/19 23 renal funct ion panel , serum [facility] [address], [place] [address] [phone] Patien t Name: VIOLET ZEPEDA Access ion #: [id number] Sex: F : 1950 2 Locati on: RA2 Attend ing Physic gege: LUIS FERNANDEZ Orderi ng Physic gege: LUIS FERNANDEZ Exam Date: 023 12:44 PM Exam Name: XR DEXA AXIAL/ HIP/PE LVIS/S PINE Admitt ing Diagno sis(es ): RADIOL OGY REPORT - FINAL EXAM: XR DEXA AXIAL/ HIP/PE LVIS/S PINE HISTOR Y: age relate d osteop orosis 71-yea r-old female with osteop orosis screen ing. COMPAR HUMA: DEXA scan dated 2020. TECHNI QUE: Dual energy x-ray of absorp tion examin ation of the bilate ral hips and lumbar spine in AP projec tion was perfor med. FINDIN GS: Lumbar Spine (L1-L4 ): The mean bone minera l densit y is 0.912 g/cm2 hydrox yapati te, correl ating with a T-scor e of -2.3. BMD of the lumbar spine is increa sed 0.8% since the prior study. Bilate ral hips: The mean bone minera l densit y is 0.819 g/cm2 calciu m Page 1 of 2 [facility] Patiwilian t Name: VIOLET ZEPEDA Access ion #: [id number] Sex: F : 1950 2 Exam Date: 023 12:44 PM Exam Name: XR DEXA AXIAL/ HIP/PE LVIS/S PINE Admitt ing Diagno sis(es ): hydrox yapati te, correl ating with a T-scor e of -1.5. BMD of the hips is decrea sed 3.2% since the prior study. IMPRES LORRIE: 1. The patien t's lumbar spine T-scor e is consis tent with osteop enia overal l. It should be noted that the BMD at L3 is consis tent with osteop orosis . 2. The patien t's bilate ral hip T-scor e is consis tent with osteop enia. Accord ing to the World Health Organi zation , T-scor e values greate r than -1.0 are normal , values betwee n -1.0 and -2.5 are catego rized as osteop enia, T-scor e of -2.5 or more are catego rized as osteop orosis . Create d and electr onical ly signed by: Chris barnes MD Signed Date: 1:07 PM (CT) Dictat ed by: Chris barnes MD DD: 1:07 PM (CT) DT: 1:07 PM (CT) Page [address] of [address] (Imaging) [address] [place], [address], 07/11/2022 08:25:28 09/02/19 23 US, abdom en, limit ed [facility] [address] [place] [address] Patien t Name: VIOLET ZEPEDA Access ion #: [id number] Sex: F : 1950 7 Locati on: RA2 Attend ing Physic gege: LUIS FERNANDEZ Orderi Physic gege: LUIS FERNANDEZ Exam Date: 12:05 PM Exam Name: US ABD/LT D/ORG/ UQ/GB Admitt ing Diagno sis(es ): RADIOL OGY REPORT - FINAL EXAM: US ABD/LT D/ORG/ UQ/GB HISTOR Y: r/o hernia COMPAR HUMA: None. TECHNI QUE: Abdomi nal ultras ound imagin g of the right upper quadra nt is perfor med. Dopple r imagin g of the vascul ar struct ures is perfor med. FINDIN GS: The anteri or abdomi nal region is evalua myles right lower quadra nt left lower quadra nt demons tratin g no masses . No eviden ce of a hernia at the level of the umbili cus. Inferi or midlin e there is a hypoec hoic area with shadow ing within the subcut aneous tissue s measur ing 0.39 cm, this is locate d approx imatel y 1.6 cm inferi or to the umbili cus. Page 1 of 2 [facility] David potts Name: VIOLET ZEPEDA Access ion #: [id number] Sex: F : 1950 7 Exam Date: 12:05 PM Exam Name: US ABD/LT D/ORG/ UQ/GB Admitt ing Diagno sis(es ): IMPRES LORRIE: Nonspe cific hypoec hoic shadow ing struct ure within the subcut aneous tissue s inferi or to the umbili cus. The appear ance is nonspe cific, recomm end CT for furthe r evalua tion. Create d and electr onical ly signed by: Trae harper MD Signed Date: 4:21 PM (CT) Dictat ed by: Trae harper MD DD: 023 4:21 PM (CT) DT: 4:21 PM (CT) Page 2 of 2 [facility] [place] [address] (Imaging) [address] [place], [address], 09/07/2022 17:41:49 09/13/[address], abdom en + pelvi s, w/o contr ast [facility] [address] [facility] [place] [address] Patien t Name: VIOLET ZEPEDA Access ion #: [id number] Sex: F : 1950 2 Dictat ed By: Suleman kramer Attend ing Physic gege: LUIS FERNANDEZ Orderi Physic gege: JIM KEANE Exam Date: 2022 09:28 AM Exam Name: CT ABDOME N/PELV IS WO Admitt ing Diagno sis(es ): CLINIC AL INFORM ATION: Follow -up abnorm al ultras ound findin gs. Hernia . Palpab le knot with tender ness at the mid to left abdome n. TECHNI QUE: Axial CT images of the abdome n and pelvis were obtain ed withou t IV contra st. Baird l and sagitt al reform atted images were obtain ed, review ed, and stored . Evalua tion of the parenc hymal organs is limite d withou t IV contra st. Evalua tion of the bowel and mesent theresa is limite d withou t oral contra st. One or more of the follow ing dose reduct ion techni ques were used: Automa myles exposu re contro l. Adjust ment of mA and/or kV accord ing to patien t size. CTDIvo l = 13.49 mGy DLP = 694.3 mGy-cm COMPAR HUMA: None. FINDIN GS: Lung bases: Lung bases are clear. Liver: Grossl y unrema rkable in its noncon trast enhanc ed appear ance. No abnorm al densit y or focal lesion identi fied. Biliar y: No calcif ied gallst ones or biliar y ductal dilata tion. Spleen : Unrema rkable . Pancre as: Grossl y unrema rkable in its noncon trast enhanc ed appear ance. Adrena l glands : Unrema rkable . No mass. Kidney s: No hydron ephros is. No renal or ureter al calcul i. Aorta/ Vascul ar: Modera te athero sclero tic calcif icatio n. No abdomi nal aortic aneury sm. Retrop eriton eum: No mass or lympha denopa thy. Bowel/ mesent theresa: No small bowel obstru ction. No free air or free fluid. Append ix is normal . Modera te stool in the colon. Pelvic organs : Grossl y unrema rkable . Bladde r: Unrema rkable . No mass. Abdomi nal wall: A marker was placed at the locati on of the patien t's clinic al sympto ms in the left ventra l abdomi nal wall (axial image 462 of 295 Page 1 [facility] [address] [place] [address] Patien t Name: VIOLET ZEPEDA Access ion #: [id number] Sex: F : 1950 2 Dictat ed By: Suleman kramer Attend ing Physic gege: JIM KEANE Orderi ng Physic gege: JIM KEANE Exam Date: 2022 09:28 AM Exam Name: CT ABDOME N/PELV IS WO Admitt ing Diagno sis(es ): correl ating with sagitt al image 78 of 126). There is minima l strand ing along the superf icial fibers of the left rectus abdomi nis muscle near this locati on. No discre te mass identi fied on CT. No focal hernia in this locati on. There is a fat-co ntaini ng left inguin al hernia with a loop of the sigmoi d colon and left coursi ng adjace nt to the proxim al aspect of the hernia sac. There is mild strand ing adjace nt to the hernia . Small fat-co ntaini ng right inguin al hernia . Bones: No acute fractu re or suspic ious intrao sseous lesion . IMPRES LORRIE: 1. Minima l strand ing along the superf icial fibers of the left rectus abdomi nis muscle near the locati on of the patien t's clinic al sympto ms as descri bed above. No discre te mass identi fied. Findin gs may be due to nonspe cific inflam mation . 2. Left inguin al hernia with adjace nt strand ing as descri bed above. Small fat-co ntaini ng right inguin al hernia . Electr onical ly Signed by: Suleman kramer at 2022 16:36: 41 PM Page 2 [facility] ([facility]) [address] [place], [address], 09/13/2022 16:29:15 Result Notes None recorded. Problems Name Problem SNOMED Code Status Onset Date Resolution Date Notes Provider Name and Address Organization Details Recorded Time Acne 30605965 Active 2018 Not Available [facility] 3 07:29:29 Injury of shoulder region 810999470 Completed Not Available [facility] 3 07:29:29 Gastroeso phageal reflux disease 931227878 Active 2021 Not Available [facility] 3 07:29:29 Low back pain 807512885 Active Not Available [facility] 3 07:29:29 Osteopeni a 466993092 Active Not Available [facility] 3 07:29:29 Depressiv e disorder 60620467 Active Not Available [facility] 3 07:29:29 Skin irritatio n 192582543 Active 2022 Not Available [facility] 3 07:29:29 Sinusitis 23025207 Completed Not Available [facility] 3 07:29:29 Motion sickness 45155050 Completed Not Available [facility] 3 07:29:30 Osteoarth ritis 603448036 Active Not Available [facility] 3 07:29:30 Solitary nodule of lung 964507477 Active 2020 Not Available [facility] 3 07:29:30 Former heavy tobacco smoker 90193751369 4100 Active 2020 Not Available [facility] 3 07:29:30 Calcifica tion of coronary artery 469253549 Active 2021 Not Available [facility] 3 07:29:30 Gastritis 9666486 Completed Not Available [facility] 3 07:29:30 Anxiety 63845375 Active Not Available [facility] 3 07:29:30 Vulvovagi nitis 56539687 Completed 201805/10/2020 Not Available [facility] 3 07:29:30 Hyperlipi demia 69592711 Active Not Available [facility] 3 07:29:31 Essential hypertens ion 46877794 Active Not Available [facility] 3 07:29:31 Osteoporo sis 13150687 Active 2020 Not Available [facility] 3 07:29:31 Snoring 62428941 Active Not Available [facility] 3 07:29:31 Nodule of lung 847744029 Active 2021 Not Available [facility] 3 07:29:31 Fatigue 90104327 Completed Not Available [facility] 3 07:29:31 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 Not Available [facility] 3 07:29:31 Chronic kidney disease 332408007 Active 2022 Lanie Fernandez NP [address], [address], [place], [address] , [employer] 3 21:15:06 Chronic kidney disease stage 4 671917206 Active 2022 Lanie Fernandez NP [address], [address], [place], [address] , [employer] [facility] [employer] [employer] 3 21:15:50 Contact dermatiti s caused by urushiol from [facility] chen [id number] Active 2022 Lanie Fernandez NP [address], [address], [place], [address] , [facility] 3 15:06:49 Hyperglyc emia 94531782 Active 2022 Lanie Fernandez NP [address], [address], [place], [address] , [employer] [facility] 3 07:54:52 Bilateral inguinal hernia 11610431 Active 2022 Lanie Fernandez NP [address], [address], [place], [address] , [place] [facility] 3 14:33:01 Abdominal pain 66527134 Active 2022 Lanie Fernandez NP [address], [address], [place], [address] , [place] [facility] 3 14:33:18 Abdominal mass 444529287 Active 2022 Lanie Fernandez NP [address], [address], [place], [address] , [place] [facility] 3 12:14:17 Excessive cerumen in ear canal 859025229 Active 2023 Lanie Fernandez NP [address], [address], [place], [address] , [place] [facility] 4 09:03:06 Problem Notes None recorded. Procedures Surgical History Date Name Laterality Status Provider Name and Address Organization Details Recorded Time 02/23/20 23 Cerumen Removal completed Lanie Fernandez NP [address], [address], [place], [address], [place] [facility] 02/22/2023 14:45:53 06/13/19 23 Most Recent Bone Density completed Lanie Fernandez NP [address], [address], [place], [address], [place] [facility] 06/13/2022 15:49:55 04/27/19 23 Date of Last Pap Smear completed Lanie Fernandez NP [address], [address], [place], [address], [place] [facility] 05/05/2022 17:57:25 Colonoscopy completed Not Available [facility] 05/03/2022 07:26:20 other completed Not Available [facility] 03/2022 07:26:20 other completed Not Available [facility] 03/2022 07:26:20 other completed Not Available [facility] 03/2022 07:26:20 Orthopedic Surgery completed Not Available [facility] 05/03/2022 07:26:20 other completed Not Available [facility] 03/2022 07:26:20 Tonsillectomy completed Not Available [facility] 05/03/2022 07:26:20 Imaging Results Imaging Date Name Status LastModified by Organiz ation Details LastModified Time 06/12/2022 renal function panel, serum completed [address] (Imaging) [address] [place], [address], 07/11/2022 08:25:28 09/01/2022 US, abdomen, limited completed [address] (Imaging) [address] [place], [address], 09/07/2022 17:41:49 09/12/2022 CT, abdomen + pelvis, w/o contrast completed [address] (Imaging) [address] [place], [address], 09/13/2022 16:29:15 Procedure Notes None recorded. Medical Equipment None Reported. Allergies Allergen ID Allergen Name Allergen Category Reaction Reaction Severity Criticality Documentation Date Start Date Code Code System Note Provider Name and Address Organization Details Recorded Time 08358 Neurontin medicatio n Not available Not available Not available 05/03/2022 65450 8 RxNorm Not Available [facility] 3 07:34:11 74648 Elavil medicatio n Not available Not available Not available 05/03/2022 84845 RxNorm Not Available [facility] 3 07:34:11 11253 cyclobenz aprine hydrochlo ride medicatio n Not available Not available Not available 05/03/2022 30303 RxNorm Not Available [facility] 3 07:34:11 12137 Cymbalta medicatio n Not available Not available Not available 05/03/2022 66835 4 RxNorm Not Available [facility] 3 07:34:11 00776 Crestor medicatio n Not available Not available Not available 05/03/2022 81635 4 RxNorm Pt repor ts she is aller gic to stati n drugs . Not Available [facility] 3 07:34:11 Medications Name Sig Start Date Stop Date Status Note LastModified by Organization Details LastModified Time losartan 50 mg tablet 1 tab po daily active cardiolo gy Not Available Not Available Not Available celecoxib 200 mg capsule TAKE 1 CAPSULE BY MOUTH TWICE DAILY WITH FOOD NEEDED active Not Available Not Available No t Available tretinoin 0.1 % topical cream Apply by topical route for 15 days. 04/17 completed supposed to be triamcin olone. Not Available Not Available Not Available amoxicill in 500 mg capsule 11/08 completed Not Available Not Available Not Available atorvasta tin 40 mg tablet TAKE 1 TABLET BY MOUTH EVERY DAY active Not Available Not Available No t Available azithromy reggie 250 mg tablet Take 2 TABLET EVERY DAY by oral route for 1 day then take 1 daily for 4 days active Not Available Not Available No t Available tizanidin e 4 mg tablet TAKE 1 TABLET BY MOUTH EVERY 6 HOURS NEEDED active Not Available Not Available No t Available fluconazo le 150 mg tablet Take 1 tablet every day by oral route for 1 day. 12/10 completed Not Available Not Available Not Available valacyclo vir 1 gram tablet 11/08 completed Not Available Not Available Not Available hydrocodo ne 5 mg-acetam inophen 325 mg tablet Take 1 tablet by oral route as needed. 11/08 completed Not Available Not Available Not Available meloxicam 15 mg tablet Take 1 tablet every day by oral route with meals. active Not Available Not Available No t Available alendrona te 70 mg tablet TAKE 1 TABLET BY MOUTH EVERY WEEK 2023 active Not Available Not Available Not Avai lable simvastat in 10 mg tablet active Not Available Not Available Not Available lidocaine HCl 2 % mucosal jelly 06/27 completed Not Available Not Available Not Available acetamino phen 300 mg-codein e 30 mg tablet 02/22 completed Not Available Not Available Not Available tramadol 50 mg tablet TAKE 2 TABLETS BY MOUTH TWICE DAILY NEEDED FOR PAIN active Not Available Not Available No t Available triamcino lone acetonide 0.1 % topical cream APPLY A THIN LAYER TO THE AFFECTED AREA(S) BY TOPICAL ROUTE 2 TIMES PER DAY NEEDED active Not Available Not Available No t Available Kenalog 40 mg/mL suspensio n for injection Take 1 mL IM by injectio n route x 1 dose 11/08 completed Not Available Not Available Not Available Nitro-Bid 2 % transderm al ointment 06/27 completed Not Available Not Available Not Available oxycodone -acetamin ophen 5 mg-325 mg tablet 11/08 completed Not Available Not Available Not Available alprazola m 0.5 mg tablet TAKE 1 TABLET BY MOUTH TWICE DAILY NEEDED 08/24 completed Not Available Not Available Not Available oxycodone -acetamin ophen 10 mg-325 mg tablet active Not Available Not Available Not Available Proctozon e-HC 2.5 % topical cream perineal applicato r 07/13 completed Not Available Not Available Not Available cephalexi n 500 mg capsule 11/08 completed Not Available Not Available Not Available simvastat in 20 mg tablet TAKE 1 TABLET BY MOUTH EVERY DAY 08/24 completed Not Available Not Available Not Available esomepraz ole magnesium 40 mg capsule,d elayed release active Not Available Not Available Not Available triamcino lone acetonide 55 mcg nasal spray aerosol Balmorhea 2 sprays every day by nasal route for 90 days. active Not Available Not Available No t Available metoprolo l succinate ER 25 mg tablet,ex tended release 24 hr TAKE 1 TABLET BY MOUTH EVERY DAY active pt on 03/06 tab po daily.Ca rdiologi st Not Available Not Available Not Available scopolami ne 1 mg over 3 days transderm al patch APPLY 1 PATCH EXTERNAL LY TO THE SKIN EVERY 72 HOURS FOR 10 DAYS DIRECTED 05/10 completed Not Available Not Available Not Available methylpre dnisolone 4 mg tablets in a dose pack take as directed 11/08 completed Not Available Not Available Not Available celecoxib 100 mg capsule TAKE 1 CAPSULE BY MOUTH TWICE DAILY 2023 active Not Available Not Available Not Avai lable Lipitor 10 mg tablet Take 1 tablet every day by oral route for 90 days. 08/13 completed Not Available Not Available Not Available fluticaso ne propionat e 50 mcg/actua tion nasal spray,sara pension Inhale 2 sprays every day by nasal route for 30 days. active Not Available Not Available No t Available ramipril 10 mg capsule TAKE 1 CAPSULE BY MOUTH DAILY 02/22 completed Not Available Not Available Not Available tretinoin microsphe res 0.1 % topical gel APPLY THIN LAYER EXTERNAL LY TO THE AFFECTED AREA EVERY EVENING AFTER WASHING 11/09 completed Not Available Not Available Not Available ezetimibe 10 mg tablet TAKE 1 TABLET BY MOUTH EVERY DAY active Not Available Not Available No t Available Vytorin 10 mg-20 mg tablet TAKE 1 TABLET BY MOUTH EVERY DAY DIRECTED 05/26 completed Not Available Not Available Not Available duloxetin e 60 mg capsule,d elayed release TAKE 1 CAPSULE BY MOUTH DAILY active Not Available Not Available No t Available ibandrona te 150 mg tablet Take 1 tablet every month by oral route. 04/13 completed Not Available Not Available Not Available Lyrica 75 mg capsule 1 po BID 07/28 completed Not Available Not Available Not Available Lyrica 150 mg capsule TAKE 1 CAPSULE BY MOUTH TWICE DAILY 04/30 completed Not Available Not Available Not Available Solu-Medr ol (PF) 125 mg/2 mL solution for injection Take 125 mg every day by injectio n route for 1 day. 08/24 completed Not Available Not Available Not Available Prevnar 13 (PF) 0.5 mL intramusc ular syringe PHARMACI ST ADMINIST ERED IMMUNIZA TION ADMINIST ERED AT TIME OF DISPENSI NG active Not Available Not Available No t Available Prolia 60 mg/mL subcutane ous syringe Inject 1 ml subcutan eous every 6 months active Not Available Not Available No t Available Vicodin 5 mg-300 mg tablet Take 1 tablet every 6-8 hours by oral route as needed. 08/14 completed Not Available Not Available Not Available Fluzone High-Dose 2367-5254 (PF) 180 mcg/0.5 mL intramusc ular syringe 01/08 completed Not Available Not Available Not Available Fluzone High-Dose (PF) 180 mcg/0.5 mL intramusc ular syringe PHARMACI ST ADMINIST ERED IMMUNIZA TION ADMINIST ERED AT TIME OF DISPENSI NG active Not Available Not Available No t Available Vitals Date Recorded Body height Body mass index (BMI) Body weight Body temperature Heart rate Respiratory rate Oxygen saturation Oxygen saturation in Arterial blood by Pulse oximetry Systolic blood pressure Diastolic blood pressure Provider Name and Address Organization Details Last Updated DateTime 3 162.56 cm 27.5 kg/m2 24983.1 8 g 97.2 [degF] 86 /min 16 /min 97 % 97 % 122 mm[Hg] 88 mm[Hg] AMARA Vieira [email or web address] [facility] 3 14:11:56 Date Recorded Body height Body mass index (BMI) Body weight Body temperature Heart rate Respiratory rate Oxygen saturation Oxygen saturation in Arterial blood by Pulse oximetry Systolic blood pressure Diastolic blood pressure Provider Name and Address Organization Details Last Updated DateTime 3 162.56 cm 28.7 kg/m2 96375.6 3 g 97.6 [degF] 52 /min 20 /min 99 % 99 % 160 mm[Hg] 100 mm[Hg] AMARA Vieira [facility] [employer] 3 14:14:34 Social History Question Answer Notes LastModified by Organization Details LastModified Time Tobacco Smoking Status Former Smoker Not Available [facility] 05/03/2022 07:25:53 Do You Have An Advance Directive? No MIGRATION.0301 [id number] Information not available 05/03/2022 What Is Your Level Of Alcohol Consumption? None MIGRATION.0301 118127 Information not available 05/03/2022 Are You Blind Or Do You Have Difficulty Seeing? No MIGRATION.030 [id number] Information not available 05/03/2022 Is Blood Transfusion Acceptable In An Emergency? Yes Information not available 08/24/2022 What Is Your Level Of Caffeine Consumption? Occasional MIGRATION.0301 [id number] Information not available 05/03/2022 What Is Your Code Status? Full Code MIGRATION.030 [id number] Information not available 05/03/2022 In The 14 Days Before Symptom Onset, Have You Had Close Contact With A Laboratory-confi rmed COVID-19 While That Case Was Ill? No MIGRATION.030 600098 Information not available 05/03/2022 In The 14 Days Before Symptom Onset, Have You Had Close Contact With A Person Who Is Under Investigation For COVID-19 While That Person Was Ill? No MIGRATION.0301 [id number] Information not available 05/03/2022 Are You Currently Employed? No Retired Information not available 08/24/2022 Are You Deaf Or Do You Have Serious Difficulty Hearing? No MIGRATION.0301 744454 Information not available 05/03/2022 What Type Of Diet Are You Following? REGULAR MIGRATION.0301 228897 Information not available 05/03/2022 Have There Been Any Changes To Your Family Or Social Situation? No MIGRATION.0301 305169 Information not available 05/03/2022 What Is The Fluoride Status Of Your Home? Fluoridated MIGRATION.0301 856231 Information not available 05/03/2022 When Did You Quit Smoking? 1-5yearssincelastci garette MIGRATION.0301 733505 Information not available 05/03/2022 Do You Use Insect Repellent Routinely? Yes Information not available 08/24/2022 Where Do You Live? SingleLevelHouse MIGRATION.0301 022787 Information not available 05/03/2022 Do You Have A Medical Power Of Ged Instructor? No MIGRATION.0301 762500 Information not available 05/03/2022 What Is Your Current Pack Years? 30ormorepackyears MIGRATION.0301 848410 Information not available 05/03/2022 Do You Have Any Pets? Yes MIGRATION.0301 702344 Information not available 05/03/2022 What Is Your Relationship Status? MIGRATION.0301 438250 Information not available 05/03/2022 Do You Have Smoke And Carbon Monoxide Detectors In Your Home? Yes MIGRATION.0301 970665 Information not available 05/03/2022 At What Age Did You Start Smoking Tobacco? 15 MIGRATION.0301 722800 Information not available 05/03/2022 Are There Any Smokers In Your House? No Information not available 08/24/2022 Do You Participate In Social Media? Yes MIGRATION.0301 520611 Information not available 05/03/2022 Do You Feel Stressed (tense, Restless, Nervous, Or Anxious, Or Unable To Sleep At Night)? [id number] MIGRATION.0301 209206 Information not available 05/03/2022 Do You Use Sunscreen Routinely? Yes Information not available 08/24/2022 How Many Years Have You Smoked Tobacco? 35 MIGRATION.0301 827491 Information not available 05/03/2022 Have You Recently Traveled Abroad? No MIGRATION.0301 478589 Information not available 05/03/2022 Are You Currently In School? No MIGRATION.0301 556837 Information not available 05/03/2022 Do You Have Any Dietary Restrictions? No MIGRATION.0301 337388 Information not available 05/03/2022 Do You Or Have You Ever Used Any Other Forms Of Tobacco Or Nicotine? No MIGRATION.0301 175160 Information not available 05/03/2022 Sex: Female Functional Status Question Answer Note LastModified by Organizat ion Details LastModified Time Do you have difficulty walking or climbing stairs? No MIGRATION.[id number] 026 Information not available 05/03/2022 Do you have transportation difficulties? No MIGRATION.1096239 026 Information not available 05/03/2022 Are you able to walk? YESWOREST MIGRATION.9722918 026 Information not available 05/03/2022 Do you have difficulty doing errands alone? No MIGRATION.9350011 026 Information not available 05/03/2022 Are you able to care for yourself? Yes MIGRATION.[id number] 026 Information not available 05/03/2022 Do you have difficulty dressing or bathing? No MIGRATION.9323120 026 Information not available 05/03/2022 What is your exercise level? None MIGRATION.8622851 026 Information not available 05/03/2022 Mental Status Question Answer Note LastModified by Organizat ion Details LastModified Time Do you have difficulty concentrating, remembering or making decisions? No MIGRATION.[id number] 6 Information not available 05/03/2022 Family History Relationship Description Onset Age of this Age Resolved Age Notes LastModified by Organization Details LastModified Time Father Heart disease MIGRATION.152 [id number] Not available 05/03/2022 07:26:21 Medical History Condition Response HEADACHES/MIGRAINES Y ANXIETY DISORDER Y ALLERGIES/HAYFEVER Y BOWEL PROBLEMS Y BACK / NECK PROBLEMS Y SLEEP DISORDER Y HEARTBURN / REFLUX Y HYPERTENSION Y HIGH CHOLESTEROL / HYPERLIPIDEMIA Y Gynecological History Statement/Question Response Date of Last Pap Smear 04/27/2022 Most Recent Bone Density 06/12/2022 Obstetrics History GPAL:G 3 P 0 0 0 0 Immunizations Vaccine Type Date Status Note Provider Nam e and Address Organization Details Recorded Time Influenza, split virus, trivalent, preservative 3 completed Not Available [facility] 05/03/2022 07:34:01 SARS-COV-2 (COVID-19) vaccine, UNSPECIFIED 2 completed Not Available [facility] 05/03/2022 07:34:01 Influenza, split virus, quadrivalent, preservative 2 completed Not Available [facility] 05/03/2022 07:34:01 COVID-19, mRNA, LNP-S, PF, 30 mcg/0.3 mL dose 1 completed Not Available [facility] 05/03/2022 07:34:01 pneumococcal polysaccharide PPV23 0 completed Not Available [facility] 05/03/2022 07:34:01 Influenza, split virus, quadrivalent, preservative 0 completed Not Available [facility] 05/03/2022 07:34:02 Influenza, split virus, quadrivalent, preservative 8 completed Not Available [facility] 05/03/2022 07:34:02 Influenza, split virus, quadrivalent, preservative 6 completed Not Available [facility] 05/03/2022 07:34:02 Tdap 4 completed Not Available [facility] 05/03/2022 07:34:03 Influenza, split virus, trivalent, PF 4 completed Not Available [facility] 05/03/2022 07:34:03 Influenza, split virus, quadrivalent, preservative 5 completed Not Available [facility] 05/03/2022 07:34:03 Past Encounters Encounter ID Performer Location Encounter Start Date Encounter Closed Date Diagnosis/Indication Diagnosis SNOMED-CT Code Diagnosis ICD10 Code Diagnosis Note [id number] [facility] [place] [address] 05/10/2020 00:00:00 05/10/2020 14:39:31 [id number] [facility] [place] [address] [place] [address] 11/09/2020 00:00:00 11/09/2020 14:24:14 [id number] [facility] [place] [address] 05/10/2021 00:00:00 05/10/2021 14:23:29 [id number] [facility] [place] [address] [place] [address] 08/08/2021 00:00:00 08/08/2021 16:23:37 [id number] [facility] [place] [address] [place] [address] 11/08/2021 00:00:00 11/08/2021 14:26:15 [id number] [facility] [address] [place] [address] 01/12/2022 00:00:00 01/12/2022 15:13:53 [id number] [facility] [address] [place] [place] [address] 04/13/2022 00:00:00 04/13/2022 16:00:21 [id number] [facility] [address] [place] [address] 04/27/2022 00:00:00 04/27/2022 14:32:58 [id number] Lanie Fernandez NP [facility] [address] [place] [address] 06/05/2022 12:22:16 06/05/2022 12:35:44 [id number] Lanie Fernandez NP [facility] [address] [place] [address] 08/02/2022 14:56:28 08/02/2022 16:27:26 Contact dermatitis caused by urushiol from [facility] 860552477 L25.5 125 mg solumedrol ordered 08/02/22 [id number] Lanie Fernandez NP [facility] [address] [place], [place] [address] [place] [address] 08/09/2022 12:35:47 08/09/2022 12:58:06 [id number] Lanie Jim, [employer] [address] [address] 08/24/2022 13:58:51 08/24/2022 14:55:06 Nodule of lung 934181781 R91.1 Osteoporosis 79401728 M8 1.0 Alendronat e 70 mg po weekly. no kidney issues. Osteoarthritis 207497315 M19.90 celebrex 200 mg po daily and tramadol 100 mg po daily. Hyperlipidemia 74970035 E78.5 zetia 10 mg po daily.Low fat diet.Atorv astatin 40 mg po nightly. Gastroesop hageal reflux disease 915171442 K21.9 nexium Essential hypertension 39530043 I10 ramipril 10 mg po dailyMetop rolol Succinate ER 25 mg po daily. Depressive disorder 3549 9007 F32.9 Duloxetine 60 mg po daily. Anxiety 12235178 F41.9 Duloxetine 60 mg po daily Abdominal pain 67736628 R10.9 US abdomen/pe lvis [id number] Lanie Fernandez NP [address] [address] 02/22/2023 14:01:22 02/22/2023 15:11:18 Nodule of lung 749856793 R91.1 Osteoporosis 30450802 M8 1.0 Alendronat e 70 mg po weekly. no kidney issues. Osteoarthritis 821164982 M19.90 Celebrex 200 mg po daily and tramadol 100 mg po bid Hyperlipidemia 71250307 E78.5 zetia 10 mg po daily.Low fat diet.Atorv astatin 40 mg po nightly. Gastroesop hageal reflux disease 970362266 K21.9 nexium Essential hypertension 41073292 I10 ramipril 10 mg po dailyMetop rolol Succinate ER 25 mg po daily. Depressive disorder 3548 9007 F32.9 Duloxetine 60 mg po daily. Anxiety 52455203 F41.9 Duloxetine 60 mg po daily Excessive cerumen in ear canal 332926795 H61.21 Health Concerns Section Related Observation LastModified by Organization Detai ls LastModified Time None Recorded Concern Status LastModified by Organization Details LastModified Time None Recorded Advance Directives Directive N: Payers Encounter Date Sequence Insurance Name Policy Number Policy Louise Covered Member ID Louise Member ID Guarantor Name 06/05/2022 1 [employer] (MEDICARE REPLACEMENT PPO) [id number] 1 Violet Shi [id number] Violet Shi 08/02/2022 1 [employer] (MEDICARE REPLACEMENT PPO) [id number] 1 Violet Shi [id number] Violet Shi 08/09/2022 1 [employer] (MEDICARE REPLACEMENT PPO) [id number] 1 Violet Shi [id number] Violet Shi 08/24/2022 1 [employer] (MEDICARE REPLACEMENT PPO) [id number] 1 Violet Shi [id number] Violet Shi 02/22/2023 1 [employer] (MEDICARE REPLACEMENT PPO) [id number] 1 Violet Shi [id number] Violet Shi Notes Date Note Type Note Provider Name and Address Organization Details Recorded Time 08/24/2022 text/html Here for follow up. Osteoporosis- Has been back on alendronatelung nodule- old findingosteoarthritis - celebrex 100 mg po bid. Has been on tramadol 100 mg in morning and evening.lipid- low fat diet not always followed.gerd- was on famotidine but not working well. Chocolate flares it.htn- stabledepression- stableanxiety- stable Having some pain in lower abdomen. feeling knots under skin. Painful with pressure.Liposuction Oct 2021. Pain worse and area getting larger. States sometimes thinks she may faint. Has no issues with bm. Lanie Fernandez, DYLAN [address] [facility], [facility] [address], [place], [address], [facility] [employer] 08/24/2022 14:54:16 02/22/2023 text/html Here for follow up. Osteoporosis- Has been back on alendronatelung nodule- old findingOsteoarthritis - celebrex 100 mg po bid. Has been on tramadol 100 mg in morning and evening. Script is only being sent for #60, but asking for 90 so she has option of 2 tabs on occasion or with twice daily dosing.lipid- low fat diet not always followed.Gerd- was on famotidine but not working well. Chocolate flares it.htn- stable. Seeing custom clothier.depressi on- stableanxiety- stable Lanie Fernandez, DYLAN [address] [facility] [address], [place], [address], [facility] [employer] [facility] 03/23/2023 09:03:32 OBGyn Episode No OBEpisode recorded.
--- OUTSIDE RECORDS SUMMARY | 2024-03-31 14:30 | XMS_ITS | Referral Summary ---
Author Organization [facility] [employer] Address [address] [place] [address] Care Team Providers Care Senior Java Web Application Developer Name Role Phone Violette Jones MD Primary Care Provider [phone] Source Comments [facility] [employer],non-owned Affiliates and Associated Physician Practices is amultiple site organization consisting of ambulatory clinics and hospital sitesin [place], [place], [place] and [place]. This disclosure is being madepursuant to the Care Everywhere program and may not contain all information available regarding this patient. Last updated 17.[facility] [employer] Allergies No known active allergies Medications * [...] Comments Blood Pressure 126/84 03/24/2011 2:04 PM POLISHING MACHINE OPERATOR HELPER Pulse 90 03/24/2011 2:04 PM POLISHING MACHINE OPERATOR HELPER Temperature 36.8 ??C (98.3 ??F) 03/24/2011 2:04 PM CS T Respiratory Rate 16 03/24/2011 2:04 PM POLISHING MACHINE OPERATOR HELPER Oxygen Saturation 100% 03/24/2011 2:04 PM POLISHING MACHINE OPERATOR HELPER Inhaled Oxygen Concentration - - Weight 74.8 kg (165 lb) 03/03/2011 2:24 PM POLISHING MACHINE OPERATOR HELPER Height 165.1 cm (5' 5 ) 03/03/2011 2:24 PM POLISHING MACHINE OPERATOR HELPER Body Mass Index 27.46 03/03/2011 2:24 PM POLISHING MACHINE OPERATOR HELPER Plan of Treatment Not on file Care Teams Senior Java Web Application Developer Relationship Specialty Start Date End Date Violette Jones MD [address] [place] [address] [address] [place] [phone] PCP - General Family Medicine 02/14/11
== END 2024-03-31 13:38 | disposition home or self-care (01) ==
LOC: ANHIMG 13:43
PROVIDERS: PCP Nurse Practitioner Family; Visit Provider Nurse Practitioner Family
DX: M85.89 Other specified disorders of bone density and structure, multiple sites (principal); M81.0 Age-related osteoporosis without current pathological fracture
CPT/HCPCS: 77080

== ENCOUNTER 2024-04-25 09:11 | Outpatient (CLI) | payer MEDICARE, SELFPAY ==
--- NOTE | ~2024-04-25 | MM_ITS ---
EXAMINATION: MM screening roly BI w andrew HISTORY: Screening TECHNIQUE: Craniocaudal and mediolateral oblique 3-D tomosynthesis images were obtained and synthetic 2-D images were generated. CAD analysis was submitted and interpreted. COMPARISON: No prior mammogram is available for comparison at this institution. BREAST PARENCHYMAL COMPOSITION: Not dense: There are scattered areas of fibroglandular density. FINDINGS: There is focal asymmetry with questionable architectural distortion in the upper outer quad rant of the right breast, middle third. There is no evidence for malignancy in the left breast. IMPRESSION: 1. Focal asymmetry with questionable architectural distortion in the upper outer quadrant of the righ t breast. 2. Additional mammographic views and possible breast ultrasound are recommended. BI-RADS Category 0: Incomplete: Needs additional imaging evaluation. Reviewed, dictated and finalized at location L. S MILL OPERATOR IMPRESSION: 1. Focal asymmetry with questionable architectural distortion in the upper oute r quadrant of the right breast. 2. Additional mammographic views and possible breast ultrasound are recommended . BI-RADS Category 0: Incomplete: Needs additional imaging evaluation.
--- OUTSIDE RECORDS SUMMARY | 2024-04-25 09:54 | XMS_ITS | Referral Summary ---
Author Organization [facility] [employer] Address [address] [place] [address] Care Team Providers Care Train Gate Attendant Name Role Phone Violette Jones MD Primary Care Provider [phone] [facility] [employer],non-owned Affiliates and Associated Physician Practices is amultiple site organization consisting of ambulatory clinics and hospital sitesin [place], [place], [place] and [place]. This disclosure is being madepursuant to the Care Everywhere program and may not contain all information available regarding this patient. Last updated 17.[facility] [employer] Allergies No known active allergies Medications * [...] Comments Blood Pressure 126/84 03/24/2011 2:04 PM HOUSING MANAGEMENT REPRESENTATIVE Pulse 90 03/24/2011 2:04 PM HOUSING MANAGEMENT REPRESENTATIVE Temperature 36.8 C (98.3 F) 03/24/2011 2:04 PM HOUSING MANAGEMENT REPRESENTATIVE Respiratory Rate 16 03/24/2011 2:04 PM HOUSING MANAGEMENT REPRESENTATIVE Oxygen Saturation 100% 03/24/2011 2:04 PM HOUSING MANAGEMENT REPRESENTATIVE Inhaled Oxygen Concentration - - Weight 74.8 kg (165 lb) 03/03/2011 2:24 PM HOUSING MANAGEMENT REPRESENTATIVE Height 165.1 cm (5' 5 ) 03/03/2011 2:24 PM HOUSING MANAGEMENT REPRESENTATIVE Body Mass Index 27.46 03/03/2011 2:24 PM HOUSING MANAGEMENT REPRESENTATIVE Plan of Treatment Not on file Care Teams Train Gate Attendant Relationship Specialty Start Date End Date Violette Jones MD [address] [place] [address] [address] [place] [phone] PCP - General Family Medicine 02/14/11
--- OUTSIDE RECORDS SUMMARY | 2024-04-25 09:54 | XMS_ITS | Clinical Summary ---
Author Organization [facility] [employer] Address [address] [facility] [place] [address] Care Team Providers Care Duplicator Punch Operator Name Role Phone Violette Jones MD Primary Care Provider Source Comments [facility] [employer],non-owned Affiliates and Associated Physician Practices is amultiple site organization consisting of ambulatory clinics and hospital sitesin [place], [place], [place] and [place]. This disclosure is being madepursuant to the Care Everywhere program and may not contain all information available regarding this patient. Last updated 17.[employer] Allergies No known active allergies Medications * [...] Comments Blood Pressure 126/84 03/24/2011 2:04 PM CREDENTIALING COORDINATOR Pulse 90 03/24/2011 2:04 PM CREDENTIALING COORDINATOR Temperature 36.8 C (98.3 F) 03/24/2011 2:04 PM CREDENTIALING COORDINATOR Respiratory Rate 16 03/24/2011 2:04 PM CREDENTIALING COORDINATOR Oxygen Saturation 100% 03/24/2011 2:04 PM CREDENTIALING COORDINATOR Inhaled Oxygen Concentration - - Weight 74.8 kg (165 lb) 03/03/2011 2:24 PM CREDENTIALING COORDINATOR Height 165.1 cm (5' 5 ) 03/03/2011 2:24 PM CREDENTIALING COORDINATOR Body Mass Index 27.46 03/03/2011 2:24 PM CREDENTIALING COORDINATOR Plan of Treatment Health Maintenance Due Date [...] age to complete this topic Care Teams Duplicator Punch Operator Relationship Specialty Start Date End Date Violette Jones MD [address] [place] [address] [place] [phone] PCP - General Family Medicine 02/14/11
--- OUTSIDE RECORDS SUMMARY | 2024-04-25 09:54 | XMS_ITS | Clinical Summary ---
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 Gender Identity Not on file Sexual Orientation Not on file Occupation Industry Job Start Date Job End Date Not on file Not on file Not on file Not on file Last Filed Vital Signs Vital Sign Reading Time Taken Comments Blood Pressure 155/89 10/21/2021 6:40 PM CDT Pulse 72 10/21/2021 6:40 PM CDT Temperature 36.2 C (97.2 F) 10/21/2021 6:40 PM CDT Respiratory Rate 18 10/21/2021 6:40 PM CDT [...] PCV) 01/01/2021 01/02/2020 INFLUENZA VACCINE (#1) 2023 0, 12/06/2017, 12/10/2015, Additional history exists DTAP/TDAP/TD VACCINES (2 - T d or Tdap) 12/26/2023 12/25/2013 RSV VACCINE (60+ or ) (1 - 1-dose 75+ series) 2025 Medical Devices Implanted Type Area Associate Web Developer Device Identifier Shelf Expiration Date Model / Serial / Lot Tooth-Lower Mouth Advance Directives For more information, please contact: [phone] * Full Code (Latest Code Status on [...]
--- OUTSIDE RECORDS SUMMARY | 2024-04-25 09:54 | XMS_ITS | Data Portability ---
Author Organization [place] - [facility] Mister Bell, Main Office Address [address] [place] [address] Assessment No assessment recorded. Plan of Treatment [...] 256 Not available 3 10:33:15 Medication Orders tramadol 50 mg tablet 2022 023 [facility], [address] , [place], [place], [id number], 3 14:37:37 celecoxib 100 mg capsule 2022 023 [facility], [address] , [place], [place], [id number], 3 14:37:35 celecoxib 100 mg capsule 2022 023 [facility]149, [address] , [place], [place], [id number], 3 14:52:04 tramadol 50 mg tablet 2022 023 [facility]43275, [address] , [place], [place], [id number], 3 14:52:06 atorvastati n 40 mg tablet 2022 023 [facility], [address] , [place], [place], [id number], 3 14:52:05 Solu-Medrol (PF) 125 mg/2 mL solution for injection 2022 023 Not available 14:08:34 Patient TargetsNo targets recorded. Patient Instructions Encounter Date Encounter Id Patient Instructions Last Modified By Organization Details Last Modified Time 08/24/2022 [id number] Fu in 6 mo for check up htn, lipid, osteoarthritis, osteopenia, gerd, depression/anxiet y. Not available 08/24/2022 14:53:37 02/22/2023 [id number] Fu in 6 mo for check up htn, lipid, osteoarthritis, osteopenia, gerd, depression/anxiet y. 02/22/23 pt aware of Diagonal departure. Not available 02/22/2023 14:37:05 Reason for Referral None Reported. Results Created Date Observation Date Name Description Value Unit Range Abnormal Flag Note LastModifiedBy Organization Detail LastModifiedTime 06/06/1906/05/2022 CBC W/O DIFFE RENTI AL white blood cells 5.3 x10'3 /uL 4.2-10 .8 Not Available [facility] (Lab) [address] [place], [address], 06/05/2022 20:51:16 06/06/19 23 06/05/2022 CBC W/O DIFFE RENTI AL red blood cells 4.92 x10'6 /uL 3.80-5 .20 Not Available [facility] (Lab) [address] [place], [address], 06/05/2022 20:51:16 06/06/19 23 06/05/2022 CBC W/O DIFFE RENTI AL hemoglobin 14.1 g/dL 12.0-1 5.6 Not Available [facility] (Lab) [address] [place], [address], 06/05/2022 20:51:16 06/06/19 23 06/05/2022 CBC W/O DIFFE RENTI AL hematocrit 43.9 % 35.7-4 5.7 Not Available [facility] (Lab) [address] [place], [address], 06/05/2022 20:51:16 06/06/19 23 06/05/2022 CBC W/O DIFFE RENTI AL mean red cell volume 89.2 fL 82.0-9 9.0 Not Available [facility] (Lab) [address] [place], [address], 06/05/2022 20:51:16 06/06/19 23 06/05/2022 CBC W/O DIFFE RENTI AL mean red cell hemoglobin 28.7 pg 27.0-3 3.0 Not Available [facility] (Lab) [address] [place], [address], 06/05/2022 20:51:16 06/06/19 23 06/05/2022 CBC W/O DIFFE RENTI AL mean RBC HGB concentratio n 32.1 g/dL 31.0-3 6.0 Not Available [facility] (Lab) [address] [place], [address], 06/05/2022 20:51:16 06/06/19 23 06/05/2022 CBC W/O DIFFE RENTI AL red cell distribution width 13.5 % 11.8-1 5.5 Not Available [facility] (Lab) [address] [place], [address], 06/05/2022 20:51:16 06/06/19 23 06/05/2022 CBC W/O DIFFE RENTI AL platelets 250 x10'3 /uL 150-40 0 Not Available [facility] (Lab) [address] [place], [address], 06/05/2022 20:51:16 06/06/19 23 06/05/2022 CBC W/O DIFFE RENTI AL mean platelet volume 10.3 fL 9.0-12 .4 Not Available [facility] (Lab) [address] [place], [address], 06/05/2022 20:51:16 06/06/19 23 06/05/2022 BASIC METAB OLIC PANEL sodium 139 mmol/ L 137-14 5 Not Available [facility] (Lab) [address] [place], [address], 06/05/2022 21:27:48 06/06/19 23 06/05/2022 BASIC METAB OLIC PANEL potassium 4.2 mmol/ L 3.5-5. 1 Not Available [facility] (Lab) [address] [place], [address], 06/05/2022 21:27:48 06/06/19 23 06/05/2022 BASIC METAB OLIC PANEL chloride 104 mmol/ L 98-107 Not Available [facility] (Lab) [address] [place], [address], 06/05/2022 21:27:48 06/06/19 23 06/05/2022 BASIC METAB OLIC PANEL carbon dioxide 27 mmol/ L 22-30 Not Available [facility] (Lab) [address] [place], [address], 06/05/2022 21:27:48 06/06/19 23 06/05/2022 BASIC METAB OLIC PANEL anion gap 12.2 mmol/ L 14-22 low Not Available [facility] (Lab) [address] [place], [address], 06/05/2022 21:27:48 06/06/19 23 06/05/2022 BASIC METAB OLIC PANEL glucose 110 mg/dL 70-99 high Not Available [facility] (Lab) [address] [place], [address], 06/05/2022 21:27:48 06/06/1906/05/2022 BASIC METAB OLIC PANEL BUN 23 mg/dL 8-19 high Not Available [facility] (Lab) [address] [place], [address], 06/05/2022 21:27:48 06/06/1906/05/2022 BASIC METAB OLIC PANEL creatinine 0.62 mg/dL 0.66-1 .25 low Not Available [facility] (Lab) [address] [place], [address], 06/05/2022 21:27:48 06/06/1906/05/2022 BASIC METAB OLIC PANEL GFR >60 Refer ence Range : [place] ge GFR Healt hy Adult : >60 [...] or ethni c subgr oups, such as [facility] nics. Outsi de the valid ated concha [...] calcu lator is avail able on the [facility] websi te: https :[email or web address] [email or web address] rg/pr ofess ional s/kdo qi/gf r_cal culat or Not Available [facility] (Lab) [address] [place], [address], 06/05/2022 21:27:48 06/06/1906/05/2022 BASIC METAB OLIC PANEL calcium 8.6 mg/dL 8.4-10 .2 Not Available [facility] (Lab) [address] [place], [address], 06/05/2022 21:27:48 06/06/1906/05/2022 LIPID PANEL cholesterol 151 mg/dL 140-19 9 NIH CHELSIE NSUS RECOM MENDA TION FOR VILMA STERO L: ADULT CHILD LOW RISK: <200 <170 BORDE RLINE : <200- 239 ----- HIGH RISK: >240 >200 Not Available [facility] (Lab) [address] [place], [address], 06/05/2022 21:27:54 06/06/1906/05/2022 LIPID PANEL triglyceride s 110 mg/dL 0-150 NIH CHELSIE NSUS REPOR T RECOM MENDA TION FOR TRIGL YCERI MICKY: ADULT CHILD LOW RISK: <150 ----- BODER LINE: 150-1 99 ----- HIGH RISK: >200 ----- Not Available [facility] (Lab) [address] [place], [address], 06/05/2022 21:27:54 06/06/19 23 06/05/2022 LIPID PANEL HDL cholesterol 51 mg/dL 40- Not Available [facility] (Lab) [address] [place], [address], 06/05/2022 21:27:54 06/06/1906/05/2022 LIPID PANEL LDL cholesterol, [...] WILL NOT BE REPOR MYLES. Not Available [facility] (Lab) [address] [place], [address], 06/05/2022 21:27:54 06/06/19 23 06/05/2022 HEPAT IC/LI CHERYL PANEL alkaline phosphatase 114 U/L 38-126 Not Available [facility] (Lab) [address] [place], [address], 06/05/2022 21:27:58 06/06/19 23 06/05/2022 HEPAT IC/LI CHERYL PANEL alanine aminotransfe rase 39 U/L 0-35 high Not Available [facility] (Lab) [address] [place], [address], 06/05/2022 21:27:58 06/06/19 23 06/05/2022 HEPAT IC/LI CHERYL PANEL aspartate aminotransfe rase 38 U/L 15-37 high Not Available [facility] (Lab) [address] [place], [address], 06/05/2022 21:27:58 06/06/19 23 06/05/2022 HEPAT IC/LI CHERYL PANEL bilirubin, total 0.70 mg/dL 0.20-1 .30 Not Available [facility] (Lab) [address] [place], [address], 06/05/2022 21:27:58 06/06/19 23 06/05/2022 HEPAT IC/LI CHERYL PANEL bilirubin, conjugated (direct) 0.00 mg/dL 0.00-0 .30 Not Available [facility] (Lab) [address] [place], [address], 06/05/2022 21:27:58 06/06/19 23 06/05/2022 HEPAT IC/LI CHERYL PANEL biliurubin,u ncong. (indirect) 0.30 mg/dL 0.00-1 .1 Not Available [facility] (Lab) [address] [place], [address], 06/05/2022 21:27:58 06/06/19 23 06/05/2022 HEPAT IC/LI CHERYL PANEL total protein 6.9 g/dL 6.3-8. 2 Not Available [facility] (Lab) [address] [place], [address], 06/05/2022 21:27:58 06/06/19 23 06/05/2022 HEPAT IC/LI CHERYL PANEL albumin 4.0 g/dL 3.0-4. 4 Not Available [facility] (Lab) [address] [place], [address], 06/05/2022 21:27:58 06/06/19 23 06/05/2022 HEPAT IC/LI CHERYL PANEL globulin 2.9 g/dL 2.6-4. 2 Not Available [facility] (Lab) [address] [place], [address], 06/05/2022 21:27:58 06/06/19 23 06/05/2022 HEPAT IC/LI CHERYL PANEL A/G ratio 1.4 ratio 1.0-2. 0 Not Available [facility] (Lab) [address] [place], [address], 06/05/2022 21:27:58 06/06/19 23 06/05/2022 VITAM IN D 25-HY DROXY vd25oh 27.1 NG/mL 30-100 low Vitam in D Statu s: Defic ient: <20 ng/mL Insuf ficie nt: 20-29 ng/mL Suffi cient : 30-10 0 ng/mL Not Available [facility] (Lab) [address] [place], [address], 06/05/2022 21:34:03 06/06/19 23 06/05/2022 TSH W/REF DORA FT4 TSH with reflex free T4 1.100 uIU/m L 0.465- 4.680 Not Available [facility] (Lab) [address] [place], [address], 06/05/2022 21:56:14 06/06/19 23 06/05/2022 VITAM IN B12 (ALYCIA JOVANNY ) vb12 403 pg/mL 239-93 1 Not Available [facility] (Lab) [address] [place], [address], 06/05/2022 22:25:37 06/06/19 23 06/05/2022 FOLAT E, SERUM /PLAS MA folate 8.86 NG/mL 2.76-2 0.0 Not Available [facility] (Lab) [address] [place], [address], 06/05/2022 22:25:39 08/03/19 23 08/02/2022 RENAL FUNCT ION PANEL sodium 140 mmol/ L 137-14 5 Not Available [facility] (Lab) [address] [place], [address], 08/02/2022 20:36:28 08/03/19 23 08/02/2022 RENAL FUNCT ION PANEL potassium 4.1 mmol/ L 3.5-5. 1 Not Available [facility] (Lab) [address] [place], [address], 08/02/2022 20:36:28 08/03/19 23 08/02/2022 RENAL FUNCT ION PANEL chloride 101 mmol/ L 98-107 Not Available [facility] (Lab) [address] [place], [address], 08/02/2022 20:36:28 08/03/19 23 08/02/2022 RENAL FUNCT ION PANEL carbon dioxide 31 mmol/ L 22-30 high Not Available [facility] (Lab) [address] [place], [address], 08/02/2022 20:36:28 08/03/19 23 08/02/2022 RENAL FUNCT ION PANEL anion gap 12.1 mmol/ L 14-22 low Not Available [facility] (Lab) [address] [place], [address], 08/02/2022 20:36:28 08/03/19 23 08/02/2022 RENAL FUNCT ION PANEL glucose 121 mg/dL 70-99 high Not Available [facility] (Lab) [address] [place], [address], 08/02/2022 20:36:28 08/03/19 23 08/02/2022 RENAL FUNCT ION PANEL BUN 16 mg/dL 8-19 Not Available [facility] (Lab) [address] [place], [address], 08/02/2022 20:36:28 08/03/19 23 08/02/2022 RENAL FUNCT ION PANEL creatinine 0.71 mg/dL 0.66-1 .25 Not Available [facility] (Lab) [address] [place], [address], 08/02/2022 20:36:28 08/03/19 23 08/02/2022 RENAL FUNCT ION PANEL GFR >60 Refer ence Range : [place] GFR Healt hy Adult : >60 [...] calcu lator is avail able on the [facility] websi te: https :[email or web address] w.priscila beto.o rg/pr ofess ional s/kdo qi/gf r_cal culat or Not Available [facility] (Lab) [address] [place], [address], 08/02/2022 20:36:28 08/03/19 23 08/02/2022 RENAL FUNCT ION PANEL calcium 9.0 mg/dL 8.4-10 .2 Not Available [facility] (Lab) [address] [place], [address], 08/02/2022 20:36:28 08/03/19 23 08/02/2022 RENAL FUNCT ION PANEL phosphorus 4.1 mg/dL 2.5-4. 5 Not Available [facility] (Lab) [address] [place], [address], 08/02/2022 20:36:28 08/03/19 23 08/02/2022 RENAL FUNCT ION PANEL albumin 4.0 g/dL 3.0-4. 4 Not Available [facility] (Lab) [address] [place], [address], 08/02/2022 20:36:28 08/10/19 23 08/09/2022 HEMOG LOBIN A1C HA1C 5.5 % 4.0-6. 0 Diabe devyn Scree alcira Crite ag: <5.7% Consi stent with absen ce of diabe devyn 5.7-6 .4% Consi stent with incre ased risk for diabe devyn (pred iabet es) >OR=6 .5% Consi stent with diabe devyn REFER ENCE: Diabe devyn Care 2016, 39(Palomares ppl.1 ):s13 -s22 Not Available [facility] (Lab) [address], [place], [address], 08/09/2022 20:16:50 06/13/19 23 renal funct ion panel , serum [facility] [address], [place] [address] [phone] Patien t Name: VIOLET ZEPEDA Access ion #: [id number] Sex: F : 1950 2 Locati on: [...] g/cm2 calciu m Page 1 of 2 [facility] Patiwilian t Name: VIOLET ZEPEDA Access ion #: [id number] Sex: F : 1950 2 Exam Date: [...] 1:07 PM (CT) Page 2 of [address] (Imaging) [address] [place], [address], 07/11/2022 08:25:28 09/02/19 23 US, abdom en, limit ed [facility] [address] [place] [address] Patien t Name: VIOLET ZEPEDA Access ion #: [id number] Sex: F : 1950 7 Locati [...] the umbili cus. Page 1 of 2 [facility] David potts Name: VIOLET ZEPEDA Access ion #: [id number] Sex: F : 1950 7 Exam [...] 4:21 PM (CT) Page 2 [facility] [address] [facility] [place] [address] (Imaging) [address] [place], [address], 09/07/2022 17:41:49 09/13/19 23 CT, abdom en + pelvi s, w/o contr ast [facility] [address] [facility] [place] [address] Patien t Name: VIOLET ZEPEDA Access ion #: [id number] Sex: F : 1950 2 Dictat [...] abdomi nal wall (axial image 462 of 955 Page 1 [facility] [address] [place] [address] Patien t Name: VIOLET ZEPEDA Access ion #: [id number] Sex: F : 1950 2 Dictat [...] at 2022 16:36: 41 PM Page 2 [facility] ([facility]) [address] [place], [address], 09/13/2022 16:29:15 Result Notes None recorded. Problems Name Problem SNOMED Code Status Onset Date Resolution Date Notes Provider Name and Address Organization Details Recorded Time Acne 31961873 Active 2018 Not Available [facility] 3 07:29:29 Injury of shoulder region 670633086 Completed Not Available [facility] 3 07:29:29 Gastroeso phageal reflux disease 981434386 Active 2021 Not Available [facility] 3 07:29:29 Low back pain 658520018 Active Not Available [facility] 3 07:29:29 Osteopeni a 746229169 Active Not Available [facility] 3 07:29:29 Depressiv e disorder 77056005 Active Not Available [facility] 3 07:29:29 Skin irritatio n 412760874 Active 2022 Not Available [facility] 3 07:29:29 Sinusitis 96399297 Completed Not Available [facility] 3 07:29:29 Motion sickness 17913830 Completed Not Available [facility] 3 07:29:30 Osteoarth ritis 353482313 Active Not Available [facility] 3 07:29:30 Solitary nodule of lung 854660162 Active 2020 Not Available [facility] 3 07:29:30 Former heavy tobacco smoker 42815606035 4100 Active 2020 Not Available [facility] 3 07:29:30 Calcifica tion of coronary artery 466786504 Active 2021 Not Available [facility] 3 07:29:30 Gastritis 5160046 Completed Not Available [facility] 3 07:29:30 Anxiety 45558921 Active Not Available [facility] 3 07:29:30 Vulvovagi nitis 63127382 Completed 201805/10/2020 Not Available [facility] 3 07:29:30 Hyperlipi demia 48759917 Active Not Available [facility] 3 07:29:31 Essential hypertens ion 67705870 Active Not Available [facility] 3 07:29:31 Osteoporo sis 46774431 Active 2020 Not Available [facility] 3 07:29:31 Snoring 33368048 Active Not Available [facility] 3 07:29:31 Nodule of lung 739059762 Active 2021 Not Available [facility] 3 07:29:31 Fatigue 01124547 Completed Not Available [facility] 3 07:29:31 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 Not Available [facility] 3 07:29:31 Chronic kidney disease 231695595 Active 2022 Lanie Fernandez NP [address], [address], [place], [address] , [employer] 3 21:15:06 Chronic kidney disease stage 4 113437461 Active 2022 Lanie Fernandez NP [address], [address], [place], [address] , [employer] [facility] [employer] 3 21:15:50 Contact dermatiti s caused by [facility]iol [facility] chen 132121344 Active 2022 Lanie Fernandez NP [address], [address], [place], [address] , [employer] [facility] 3 15:06:49 Hyperglyc emia 75198065 Active 2022 Lanie Fernandez NP [address], [address], [place], [address] , [employer] [facility] 3 07:54:52 Bilateral inguinal hernia 00093951 Active 2022 Lanie Fernandez NP [address], [address], [place], [address] , [place] [facility] 3 14:33:01 Abdominal pain 99095452 Active 2022 Lanie Fernandez NP [address], [address], [place], [address] , [place] [facility] 3 14:33:18 Abdominal mass 322317393 Active 2022 Lanie Fernandez NP [address], [address], [place], [address] , [employer] [place] [facility] 3 12:14:17 Excessive cerumen in ear canal 328981636 Active 2023 Lanie Fernandez NP [address], [address], [place], [address] , [employer] [place] [facility] 4 09:03:06 Problem Notes None recorded. Procedures Surgical History Date Name Laterality Status Provider Name and Address Organization Details Recorded Time 02/23/20 23 Cerumen Removal completed Lanie Fernandez NP [address], [address], [place], [address], [employer] [place] [facility] 02/22/2023 14:45:53 06/13/19 23 Most Recent Bone Density completed Lanie Fernandez NP [address], [address], [place], [address], [employer] [place] [facility] 06/13/2022 15:49:55 04/27/19 23 Date of Last Pap Smear completed Lanie Fernandez NP [address], [address], [place], [address], [employer] [place] [facility] 05/05/2022 17:57:25 Colonoscopy completed Not Available [facility] 05/03/2022 07:26:20 other completed Not Available [facility] 03/2022 07:26:20 other completed Not Available [facility] 03/2022 07:26:20 other completed Not Available [facility] 03/2022 07:26:20 Orthopedic Surgery completed Not Available [facility] 05/03/2022 07:26:20 other completed Not Available [facility] 03/2022 07:26:20 Tonsillectomy completed Not Available [facility] 05/03/2022 07:26:20 Imaging Results Imaging Date Name Status LastModified by Organiz ation Details LastModified Time 06/12/2022 renal function panel, serum completed [address] (Imaging) [address] [place], [address], 07/11/2022 08:25:28 09/01/2022 US, abdomen, limited completed [address] (Imaging) [address] [place], [address], 09/07/2022 17:41:49 09/12/2022 CT, abdomen + pelvis, w/o contrast completed [address] (Imaging) [address] [place], [address], 09/13/2022 16:29:15 Procedure Notes None recorded. Medical Equipment None Reported. Allergies Allergen ID Allergen Name Allergen Category Reaction Reaction Severity Criticality Documentation Date Start Date Code Code System Note Provider Name and Address Organization Details Recorded Time 78384 Neurontin medicatio n Not available Not available Not available 05/03/2022 42648 8 RxNorm Not Available [facility] 3 07:34:11 92230 Elavil medicatio n Not available Not available Not available 05/03/2022 14088 RxNorm Not Available [facility] 3 07:34:11 12186 cyclobenz aprine hydrochlo ride medicatio n Not available Not available Not available 05/03/2022 74879 RxNorm Not Available [facility] 3 07:34:11 43752 Cymbalta medicatio n Not available Not available Not available 05/03/2022 95764 4 RxNorm Not Available [facility] 3 07:34:11 14061 Crestor medicatio n Not available Not available Not available 05/03/2022 05653 4 RxNorm Pt repor ts she is aller gic to stati n drugs . Not Available [facility] 3 07:34:11 Medications Name Sig Start Date [...] lone acetonide 55 mcg nasal spray aerosol [place] 2 sprays every day by nasal route [...] Available Not Available Not Available Fluzone High-Dose [id number] (PF) 180 mcg/0.5 mL intramusc ular syringe [...] saturation in Arterial blood by Pulse oximetry Pain severity - 0-10 verbal numeric rating [Score] - Reported Systolic blood pressure Diastolic blood pressure Provider Name and Address Organization Details Last Updated DateTime 3 162.56 cm 27.5 kg/m2 11471.1 8 g 97.2 [degF] 86 /min 16 /min 97 % 97 % 0 122 mm[Hg] 88 mm[Hg] Lanie Jj RN [facility] [employer] [facility] 3 14:11:56 Date Recorded Body height Body mass index (BMI) Body weight Body temperature Heart rate Respiratory rate Oxygen saturation Oxygen saturation in Arterial blood by Pulse oximetry Pain severity - 0-10 verbal numeric rating [Score] - Reported Systolic blood pressure Diastolic blood pressure Provider Name and Address Organization Details Last Updated DateTime 3 162.56 cm 28.7 kg/m2 18677.6 3 g 97.6 [degF] 52 /min 20 /min 99 % 99 % 4 160 mm[Hg] 100 mm[Hg] Lanie Jj RN [facility] [employer] [facility] 3 14:14:34 Social History Question Answer Notes LastModified by Organization Details LastModified Time Tobacco Smoking Status Former Smoker Not Available [facility] 05/03/2022 07:25:53 Do You Have An Advance Directive? No [id number] [id number] Information not available 05/03/2022 What Is Your Level Of Alcohol Consumption? None [email or web address].030 [id number] Information not available 05/03/2022 Are You Blind Or Do You Have Difficulty Seeing? No MIGRATION.030 [id number] Information not available 05/03/2022 Is Blood Transfusion Acceptable In An Emergency? Yes Information not available 08/24/2022 What Is Your Level Of Caffeine Consumption? Occasional [email or web address].030 [id number] Information not available 05/03/2022 What Is Your Code Status? Full Code [email or web address] [id number] Information not available 05/03/2022 In The 14 Days Before Symptom Onset, Have You Had Close Contact With A Laboratory-confi rmed COVID-19 While That Case Was Ill? No [email or web address].030 [id number] Information not available 05/03/2022 In The 14 Days Before Symptom Onset, Have You Had Close Contact With A Person Who Is Under Investigation For COVID-19 While That Person Was Ill? No MIGRATION.030 [id number] Information not available 05/03/2022 Are You Currently Employed? No Retired Information not available 08/24/2022 Are You Deaf Or Do You Have Serious Difficulty Hearing? No MIGRATION.0301 [id number] Information not available 05/03/2022 What Type Of Diet Are You Following? REGULAR MIGRATION.0301 [id number] Information not available 05/03/2022 Have There Been Any Changes To Your Family Or Social Situation? No MIGRATION.0301 [id number] Information not available 05/03/2022 What Is The Fluoride Status Of Your Home? Fluoridated MIGRATION.0301 [id number] Information not available 05/03/2022 When Did You Quit Smoking? 1-5yearssincelastci garette MIGRATION.0301 [id number] Information not available 05/03/2022 Do You Use Insect Repellent Routinely? Yes Information not available 08/24/2022 Where Do You Live? [place]House MIGRATION.0301 [id number] Information not available 05/03/2022 Do You Have A Medical Power Of Technical Specialist Cytology? No MIGRATION.0301 [id number] Information not available 05/03/2022 What Is Your Current Pack Years? 30ormorepackyears MIGRATION.0301 [id number] Information not available 05/03/2022 Do You Have Any Pets? Yes MIGRATION.0301 [id number] Information not available 05/03/2022 What Is Your Relationship Status? MIGRATION.0301 [id number] Information not available 05/03/2022 Do You Have Smoke And Carbon Monoxide Detectors In Your Home? Yes MIGRATION.0301 [id number] Information not available 05/03/2022 At What Age Did You Start Smoking Tobacco? 15 MIGRATION.0301 [id number] Information not available 05/03/2022 Are There Any Smokers In Your House? No Information not available 08/24/2022 Do You Participate In Social Media? Yes MIGRATION.0301 [id number] Information not available 05/03/2022 Do You Feel Stressed (tense, Restless, Nervous, Or Anxious, Or Unable To Sleep At Night)? [id number] MIGRATION.0301 [id number] Information not available 05/03/2022 Do You Use Sunscreen Routinely? Yes Information not available 08/24/2022 How Many Years Have You Smoked Tobacco? 35 MIGRATION.0301 [id number] Information not available 05/03/2022 Have You Recently Traveled Abroad? No MIGRATION.0301 [id number] Information not available 05/03/2022 Are You Currently In School? No MIGRATION.0301 [id number] Information not available 05/03/2022 Do You Have Any Dietary Restrictions? No MIGRATION.0301 [id number] Information not available 05/03/2022 Do You Or Have You Ever Used Any Other Forms Of Tobacco Or Nicotine? No MIGRATION.0301 [id number] Information not available 05/03/2022 Sex: Female Functional Status Question Answer Note LastModified by [employer] Details LastModified Time Do you have difficulty walking or climbing stairs? No [id number] 026 Information not available 05/03/2022 Do you have transportation difficulties? No MIGRATION.[id number] 026 Information not available 05/03/2022 Are you able to walk? YESWOREST MIGRATION.[id number] 026 Information not available 05/03/2022 Do you have difficulty doing errands alone? No MIGRATION.[id number] 026 Information not available 05/03/2022 Are you able to care for yourself? Yes MIGRATION.[id number] 026 Information not available 05/03/2022 Do you have difficulty dressing or bathing? No MIGRATION.2774249 026 Information not available 05/03/2022 What is your exercise level? None MIGRATION.[id number] 026 Information not available 05/03/2022 Mental Status Question Answer Note LastModified by [employer] Details LastModified Time Do you have difficulty concentrating, remembering or making decisions? No MIGRATION.[id number] 6 Information not available 05/03/2022 Family History Relationship Description Onset Age of this Age Resolved Age Notes LastModified by Organization Details LastModified Time Father Heart disease MIGRATION.099 [id number] Not available 05/03/2022 07:26:21 Medical History Condition [...] (COVID-19) vaccine, UNSPECIFIED 2 completed Not Available [facility] 05/03/2022 07:34:01 Influenza, split virus, quadrivalent, preservative 2 completed Not Available [facility] 05/03/2022 07:34:01 COVID-19, mRNA, LNP-S, PF, 30 mcg/0.3 mL dose 1 completed Not Available [facility] 05/03/2022 07:34:01 pneumococcal polysaccharide PPV23 0 completed Not Available [facility] 05/03/2022 07:34:01 Influenza, split virus, quadrivalent, preservative 0 completed Not Available [facility] 05/03/2022 07:34:02 Influenza, split virus, quadrivalent, preservative 8 completed Not Available [facility] 05/03/2022 07:34:02 Influenza, split virus, quadrivalent, preservative 6 completed Not Available [facility] 05/03/2022 07:34:02 Tdap 4 completed Not Available [facility] 05/03/2022 07:34:03 Influenza, split virus, trivalent, PF 4 completed Not Available [facility] 05/03/2022 07:34:03 Influenza, split virus, quadrivalent, preservative 5 completed Not Available [facility] 05/03/2022 07:34:03 Past Encounters Encounter ID Performer Location Encounter Start Date Encounter Closed Date Diagnosis/Indication Diagnosis SNOMED-CT Code Diagnosis ICD10 Code Diagnosis Note [id number] [facility] [place] [address] 05/10/2020 00:00:00 05/10/2020 14:39:31 [id number] [facility] [place] [address] 11/09/2020 00:00:00 11/09/2020 14:24:14 [id number] [facility] [place] [address] [facility] [place] [address] 05/10/2021 00:00:00 05/10/2021 14:23:29 [id number] [facility] Family [facility] [place] [address] [facility] [place] [address] 08/08/2021 00:00:00 08/08/2021 16:23:37 [id number] [facility] Family [facility] [place] [address] [facility] [place] [address] 11/08/2021 00:00:00 11/08/2021 14:26:15 [id number] [facility] [place] [address] [place], [place] [address] [place] [address] 01/12/2022 00:00:00 01/12/2022 15:13:53 [id number] [facility] Marc [address] [place] [address] 04/13/2022 00:00:00 04/13/2022 16:00:[id number] [address] 04/27/2022 00:00:00 04/27/2022 14:32:58 [id number] Lanie Fernandez NP [address] [address] 06/05/2022 12:22:16 06/05/2022 12:35:44 [id number] Lanie Fernandez NP [facility] Practice [address] [address] 08/02/2022 14:56:28 08/02/2022 16:27:26 Contact dermatitis [facility] chen 086169815 L25.5 125 mg solumedrol ordered 08/02/22 [id number] Lanie Fernandez NP [facility] Family Practice [place] [address] [place], [place] [address] [place] [address] 08/09/2022 12:35:47 08/09/2022 12:58:06 [id number] Lanie Fernandez NP [address] [address] 08/24/2022 13:58:51 08/24/2022 14:55:06 Nodule of lung 432422048 R91.1 Osteoporosis 77339170 M8 1.0 Alendronat e 70 mg po weekly. no kidney issues. Osteoarthritis 682194928 M19.90 celebrex 200 mg po daily and tramadol 100 mg po daily. Hyperlipidemia 85070628 E78.5 zetia 10 mg po daily.Low fat diet.Atorv astatin 40 mg po nightly. Gastroesop hageal reflux disease 166933047 K21.9 nexium Essential hypertension 56325357 I10 ramipril 10 mg po dailyMetop rolol Succinate ER 25 mg po daily. Depressive disorder 3548 9007 F32.9 Duloxetine 60 mg po daily. Anxiety 62963426 F41.9 Duloxetine 60 mg po daily Abdominal pain 95909969 R10.9 US abdomen/pe lvis [id number] Lanie Fernandez NP [address] [address] 02/22/2023 14:01:22 02/22/2023 15:11:18 Nodule of lung 403403142 R91.1 Osteoporosis 62012516 M8 1.0 Alendronat e 70 mg po weekly. no kidney issues. Osteoarthritis 261078260 M19.90 Celebrex 200 mg po daily and tramadol 100 mg po bid Hyperlipidemia 63659176 E78.5 zetia 10 mg po daily.Low fat diet.Atorv astatin 40 mg po nightly. Gastroesop hageal reflux disease 419160367 K21.9 nexium Essential hypertension 17026033 I10 ramipril 10 mg po dailyMetop rolol Succinate ER 25 mg po daily. Depressive disorder 3548 9007 F32.9 Duloxetine 60 mg po daily. Anxiety 01295208 F41.9 Duloxetine 60 mg po daily Excessive cerumen in ear canal 861207762 H61.21 Health Concerns Section Related Observation LastModified by Organization Detai ls LastModified Time None Recorded Concern Status LastModified by Organization Details LastModified Time None Recorded Advance Directives Directive N: Payers Encounter Date Sequence Insurance Name Policy Number Policy Louise Covered Member ID Louise Member ID Guarantor Name 06/05/2022 1 [employer] (MEDICARE REPLACEMENT PPO) [id number] 1 Violet Shi [id number] Violet Shi 08/02/2022 1 [employer] (MEDICARE REPLACEMENT PPO) [id number] 1 Violet Shi [id number] Violet Shi 08/09/2022 1 [employer] (MEDICARE REPLACEMENT PPO) [id number] 1 Violet Shi [id number] Violet Shi 08/24/2022 1 [employer] (MEDICARE REPLACEMENT PPO) [id number] 1 Violet Shi [id number] Violet Shi 02/22/2023 1 [employer] (MEDICARE REPLACEMENT PPO) [id number] Violet Shi [id number] Violet Shi Notes Date Note Type Note [...] issues with bm. Lanie Fernandez, DYLAN [address] [facility], [facility] [address], [place], [address], [place] - S Mister Bell 08/24/2022 14:54:16 02/22/2023 text/html Here for follow [...] working well. Chocolate flares it.htn- stable. Seeing gear hobber.depressi on- stableanxiety- stable Lanie Fernandez NP [address] [facility] [address], [place], [address], [facility] Mister Bell 03/23/2023 09:03:32 OBGyn Episode No OBEpisode recorded.
--- OUTSIDE RECORDS SUMMARY | 2024-04-25 09:54 | XMS_ITS | Clinical Summary ---
Author Organization [facility] Address [address] [place] [address] Care Team Providers Care Geographic Information Scientist Name Role Phone Michael Rodriguez MD Unavailable Lanie Razo [facility] Primary Care Provider + Allergies Active [...] 73 10/09/2023 1:31 PM CDT Temperature 36.7 C (98 F) 10/06/2019 10:29 AM CDT Respiratory Rate 17 10/06/2019 10:29 AM CDT Oxygen Saturation 94% 10/09/2023 1:31 PM CDT Inhaled Oxygen Concentration - - Weight 76.2 kg (168 lb) 10/09/2023 1:31 PM CDT Height 165.1 cm (5' 5 ) 10/09/2023 1:31 PM CDT Body Mass Index 27.96 10/09/2023 1:31 PM CDT Plan of Treatment Health Maintenance Due Date Last Done Comments ASCVD Statin 1950 Hepatitis C 1968 Zoster Vaccines (1 of 2) 2000 RSV Immunization or 60+ Years (1 - Risk 60-74 years 1-dose series) 2010 Annual Medicare Wellness Visit 12/24/2015 Dexa Scan (General) 12/24/2015 Mammogram Screening 04/30/2022 04/30/2020, 03/14/2019, 08/14/2017 COVID-19 Vaccine (3 - season) 2023 01/10/2022, 05/03/2020 Influenza Adult (#1) 2023 12/13/2021, 12/02/2019, 12/09/2018, Additional history exists DTaP, Tdap and Td Vaccines (2 - Td or Tdap) 12/26/2023 12/25/2013 PHQ-2 (Physician [place]) 03/05/2024 Colorectal Cancer Screening Colonoscopy (10 Years) [...] Results * Colonoscopy (10/06/2019 9:44 AM CDT) Narrative Vadim Wyatt MD - 10/06/2019 9:44 AM CDT Vadim Wyatt MD 10/06/2019 10:08 AM VADIM WYATT MD, FACG, FACP COLONOSCOPY This is a 68-year-old female with history of Tonsillectomy, uterine polypectomy, bilateral carpal tunnel, breast lift, face lift, tummy tuck, HTN, HLN, anxiety, sleep issues, headaches chronic pain, fibromyalgia, IHSAN (no CPAP) and palpitations who now presents for colonoscopy to screening for colon cancer. GI review of systems is negative. No endocarditis risk factors. Allergies Allergen Reactions Nsaids Other (see comment) H/O IRRITATED STOMACH AND DIGESTIVE TRACT Medications: see list. Family history: negative for colon cancer. WDWN patient in NAD. VITALS: Stable. LUNGS: Clear. HEART: RRR S1/S2 normal. ABDOMEN: NABS/NT. The procedure of colonoscopy, its indications, alternatives of barium studies and risks including perforation, bleeding, infection, reaction to medication as well as the possible need for blood or surgery were discussed with the patient prior to the procedure. The patient voices understanding, agrees to proceed and provides informed consent. COLONOSCOPY INDICATION: Screening for colon cancer. POST-OP: One polyp removed. SEDATION: Per Anesthesia PREP: Good. With the patient in the left lateral decubitus position, the Olympus [id number] colonoscope was introduced into the rectum and advanced [...] will follow-up with DYLAN Solis as needed. Vadim Wyatt M.D. Vadim Wyatt MD GI PROCEDURE ORDERABLES Fin al Result from Last 3 Months or Most Recently Relevant to Health Maintenance Insurance AETNA AETNA Care Teams Geographic Information Scientist Relationship Specialty Start Date End Date Lanie Razo, [facility]- [address] [place] [id number] PCP - General Nurse Practitioner Family 06/05/23 Michael Rodriguez MD [address] [place] [address] EP Justowriter Operator CLINICAL CARDIAC ELECTROPHYSIOLOGY 01/27/19
--- OUTSIDE RECORDS SUMMARY | 2024-04-25 09:54 | XMS_ITS | Encounter Summary ---
Author Organization [facility] Address [address] [place] [address] Care Team Providers Care Grain Farmer Name Role Phone Christina Solis NP Primary Care Provider [phone] Michael Rodriguez MD Unavailable Lanie Razo [facility] Primary Care Provider + Lanie Razo [facility] Primary Care Provider + Encounter Details Date Type Department Care Team (Late st Contact Info) Description 10/03/2019 Prep for Procedure [facility] [place], [place] [address] Vadim Wyatt MD [address] [phone] Social History Tobacco Use Types Packs/Day Years [...] as of this encounter Plan of Treatment Not on file documented as of this encounter Results * PRE-SURGICAL/PRE-PROCEDURE CORONAVIRUS (COVID 19) (10/03/2019 2:00 PM CDT) CORONAVIRUS SARS COV 2 PCR (RESP) NOT DETECTED NOT DETECTED 10/05/2019 10:52 AM CDT [facility] Comment: A Not Detected (negative) test result for this test means that SARS- CoV-2 RNA was not present in the specimen above the limit of detection. A negative result does not rule out the possibility of COVID-19 and should not be used as the sole basis for treatment or patient management decisions. If COVID-19 is still suspected, based on exposure [...] providers and patients using the following websites: https://www.[employer]/home/Covid-19/HCP/[facility]/fact- sheet.html https://www.[employer]/home/Covid-19/Patients/ [employer]/fact-sheet.html This test has been authorized by the FDA under an Emergency Use Authorization (EUA) for use by authorized laboratories. Due to the current public health emergency, [facility] is receiving a high volume of samples [...] including collection of an additional specimen. Methodology: Nucleic Acid Amplification Test (NAAT) includes PCR or TMA Additional information about COVID-19 can be found at the [facility] website: www.[employer]/Covid19. Test performed at [facility] [address] [address] [facility] [place] [address] Director: MADISON [place] DO,MPH NASOPHARYNGEAL SWAB / Unknown 10/03/2019 2:00 PM CDT us Vadim Wyatt MD MICROBIOLOGY - [facility] HEREDIA Final Result [facility] [id number] [place] [address] documented in this encounter Visit Diagnoses Diagnosis Encounter for screening colonoscopy- Primary Special screening for malignant neoplasms, colon documented in this encounter Additional Health Concerns Infection Onset Date Last Indicated Resolved Time COVID-19 Rule Out 10/03/2019 10/03/2019 10/05/2019 10:53 AM CDT documented as of this encounter Care Teams Grain Farmer Relationship Specialty Start Date End Date Christina Solis NP [address] [place] [address] PCP - General NURSE PRACTITIONER 01/24/19 01/02/[address] [facility] [address] [place] [id number] PCP - General NURSE PRACTITIONER 01/03/22 06/04/[address] [facility] [address] [place] [address] PCP - General Nurse Practitioner [facility] 06/05/23 Michael Rodriguez MD [facility]. [address] [address] EP Director Engineering CLINICAL CARDIAC ELECTROPHYSIOLOGY 01/27/19 documented as of this encounter
--- OUTSIDE RECORDS SUMMARY | 2024-04-25 09:54 | XMS_ITS | Patient Health Summary ---
Author Organization [facility] Address [address] [place] [address] Care Team Providers Care Cream Beater Name Role Phone Violette Jones MD Primary Care Provider [phone] Note from [facility],non-owned Affiliates and Associated Physician Practices is amultiple site organization consisting of ambulatory clinics and hospital sitesin [place], [place], [place] and [place]. This disclosure is being madepursuant to the Care Everywhere program and may not contain all information available regarding this patient. Last updated 17.[facility] [employer] Allergies No known active allergies Medications * [...] Comments Blood Pressure 126/84 03/24/2011 2:04 PM MANUFACTURING TECHNOLOGIST Pulse 90 03/24/2011 2:04 PM MANUFACTURING TECHNOLOGIST Temperature 36.8 C (98.3 F) 03/24/2011 2:04 PM MANUFACTURING TECHNOLOGIST Respiratory Rate 16 03/24/2011 2:04 PM MANUFACTURING TECHNOLOGIST Oxygen Saturation 100% 03/24/2011 2:04 PM MANUFACTURING TECHNOLOGIST Inhaled Oxygen Concentration - - Weight 74.8 kg (165 lb) 03/03/2011 2:24 PM MANUFACTURING TECHNOLOGIST Height 165.1 cm (5' 5 ) 03/03/2011 2:24 PM MANUFACTURING TECHNOLOGIST Body Mass Index 27.46 03/03/2011 2:24 PM MANUFACTURING TECHNOLOGIST Procedures * PAIN MANAGEMENT PROCEDURE TIME(Performed 03/24/2011) * PAIN MANAGEMENT PROCEDURE TIME(Performed 03/03/2011) * EMG WITH NERVE CONDUCTION STUDY(Performed 02/24/2011) Performed for Intractable neuropathic pain of lower extremity Results * PAIN MANAGEMENT PROCEDURE TIME (03/24/2011 3:05 PM MANUFACTURING TECHNOLOGIST) Only the most recent of2 resultswithin the time period is included. Anatomical Region Laterality Modality X-Ray Angiograph y Narrative 03/24/2011 6:02 PM MANUFACTURING TECHNOLOGIST RT Gertrude(R) 03/24/2011 3:26 PM Fluoroscopically Guided Bilateral Sacroiliac Joint Injections [...] on how to reach the clinic or business analyst sales operations physician at anytime for questions or complaints. [...] Patient was given discharge instructions. Procedure Note Sidra Ashford, RT(R) - 03/24/2011 3:25 PM CST Fluoroscopically [...] on how to reach the clinic or business analyst sales operations physician at anytimefor questions or complaints. The [...] points in the musculature was identified. Using [id number] 1.5 inch needle, I injected 1 cc of a mixture of 5 cc of 1%lidocaine and 5 cc of 0.25% bupivacaine into the following muscles:erector spinae and gluteus minimus. The patient tolerated the procedureand no complications. Patient was given discharge instructions. Claudy Pina MD DIAGNOSTIC IMAGIN G ORDERABLES * EMG WITH NERVE CONDUCTION STUDY (02/24/2011) Destin Burdick MD NEUROLOGY [facility] Teams Cream Beater Relationship Specialty Start Date End Date Violette Jones MD [address] [place] [phone] PCP - General Family Medicine 02/14/11
--- OUTSIDE RECORDS SUMMARY | 2024-04-25 09:55 | XMS_ITS | Referral Summary ---
Author Organization [facility] [address] [facility] Address [address] [place] [address] Care Team Providers Care Event Marketing Manager Name Role Phone Lanie Razo NP Primary Care Provider + Tremaine Salomon MD Unavailable [phone] Encounters Date Type Department Care Team Description 03/27/2024 9:55 AM CORRECTIONAL COUNSELOR/CASE MANAGER - 03/27/2024 11:59 PM CORRECTIONAL COUNSELOR/CASE MANAGER Hospital Encounter [facility] 1 DIAG IMG [address] [place] [address] Left knee pain, unspecified chronicity; Right knee pain, unspecified chronicity Discharge Disposition: Discharge to home or self care 03/27/2024 10:00 AM CORRECTIONAL COUNSELOR/CASE MANAGER Office Visit [facility] [address] [place] [address] [address] [place] [phone] Dex Saab DO Right knee pain, unspecified chronicity (Primary Dx); Left knee pain, unspecified chronicity; Primary osteoarthritis of left knee; Primary osteoarthritis of right knee; Pes anserine bursitis from Last 3 Months Allergies Active Allergy Reactions Criticality Noted Date Comments Nsaids (Non-Steroidal Anti-Inflammatory Drug) Other (See comments) Low 10/18/2011 H/O IRRITATED STOMACH AND DIGESTIVE TRACT Promethazine Other (See comments) Low 08/18/2021 Restless legs Medications traMADoL (ULTRAM) 50 mg tablet Take 2 tablets (100 mg total) by mouth daily Active celecoxib (CeleBREX) 100 mg capsule Take 1 capsule (100 mg total) by mouth 2 (two) times a day [address] (CYMBALTA) 60 mg capsule Take 1 capsule (60 mg total) by mouth daily Active ramipriL (ALTACE) 10 mg capsule ramipril 10 mg capsule TAKE 1 CAPSULE DAILY Active ezetimibe (ZETIA) 10 mg tablet Take 1 tablet (10 mg total) by mouth nightly Active metoprolol XL (TOPROL-XL) 25 mg extended release tablet Take 0.5 tablets (12.5 mg total) by mouth nightly Active atorvastatin (LIPITOR) 40 mg tablet Take 1 tablet (40 mg total) by mouth nightly Active aspirin 81 mg enteric coated tablet Take 1 tablet (81 mg total) by mouth daily Active cholecalciferol (VITAMIN D-3) 5,000 unit tablet 1 tablet (5,000 Units total) daily Active losartan (COZAAR) 50 mg tablet Take 1 tablet (50 mg total) by mouth daily Active acetaminophen-c odeine (TYLENOL with CODEINE #3) 300-30 mg per tablet Take 1 tablet by mouth every 4 (four) hours as needed for pain 20 tablet 3 Active alendronate (FOSAMAX) 70 mg tablet Take 1 tablet (70 mg total) by mouth once a week 4 Active amLODIPine (NORVASC) 10 mg tablet Take 1 tablet (10 mg total) by mouth daily 4 Active denosumab (Prolia) 60 mg/mL syringe Inject 1 ml subcutaneous every [address] (NexIUM) 40 mg capsule 5 Active ibandronate (BONIVA) 150 mg tablet ibandronate 150 mg tablet Active simvastatin (ZOCOR) 10 mg tablet Active tiZANidine (ZANAFLEX) 4 mg tablet Take 1 tablet (4 mg total) by mouth as needed 4 Active zolpidem (AMBIEN) 5 mg tablet Take 1 tablet (5 mg total) by mouth nightly as needed 4 Active Hospital, Clinic, or Other Facility Administered Medication Ordered Dose Route Frequency Start Date End Date Status lidocaine (XYLOCAINE) 10 mg/mL (1 %) injection 4 mLIndications:Admini stration of Local Anesthesia 4 mL One-Time Injection 03/27/2024 5 Ended lidocaine (XYLOCAINE) 10 mg/mL (1 %) injection 4 mLIndications:Admini stration of Local Anesthesia 4 mL One-Time Injection 03/27/2024 5 Ended triamcinolone (KENALOG) 40 mg/mL injection 80 mgIndications:Primar y osteoarthritis of right knee 80 mg intra-artic One-Time Injection 03/27/2024 5 Ended triamcinolone (KENALOG) 40 mg/mL injection 80 mgIndications:Primar y osteoarthritis of left knee 80 mg intra-artic One-Time Injection 03/27/2024 5 Ended Active Problems Problem Noted Date Diagnosed Date Abdominal mass 09/05/2022 Abdominal pain 08/24/2022 Bilateral inguinal hernia 08/24/2022 Hyperglycemia 08/03/2022 Contact dermatitis due to poison chen 08/02/2022 Stage 4 chronic kidney disease (CMS/HCC) 023 Skin irritation 04/16/2022 Calcification of coronary artery 12/14/2021 Anxiety 08/17/2021 Depressive disorder 08/17/2021 Fatigue 08/17/2021 Gastroesophageal reflux disease 08/17/2021 Hyperlipidemia 08/17/2021 Hypertension 08/17/2021 Low back pain 08/17/2021 Motion sickness 08/17/2021 Osteoarthrosis 08/17/2021 Osteopenia 08/17/2021 Palpitations 08/17/2021 Primary fibromyalgia syndrome 08/17/2021 Shoulder injury 08/17/2021 Sinusitis 08/17/2021 Snoring 08/17/2021 Arthritis of carpometacarpal (CMC) joint of left thumb 08/17/2021 Arthritis of carpometacarpal (CMC) joint of righ t thumb 08/17/2021 Solitary pulmonary nodule 11/09/2020 Osteoporosis 06/10/2020 Acne 12/10/2018 Vulvovaginitis 12/10/2018 Breast ptosis 06/28/2011 Excess skin of abdomen 06/28/2011 Lipoma of back 06/28/2011 Localized adiposity 06/28/2011 Sacroiliitis, not elsewhere classified 1 Social History Tobacco Use Types Packs/Day Years Used Date Smoking Tobacco: Former Cigarettes 0.5 30 1 965 - 1994 Smokeless Tobacco: Former AUDIT-C Answer Date Recorded Q1: How often do you have a drink containing alcohol? Never 12/07/2022 Q2: How many drinks containi ng alcohol do you have on a typical day when you are drinking? Patient does not drink Q3: How often do you have si x or more drinks on one occasion? Never 12/07/2022 Personal Safety Answer Date Recorded Have you ever been in or are you currently in a harmful physical or emotional relationship or is someone making you feel afraid or unsafe? Denies 12/07/2022 Comments Unknown Sex and Gender Information Value Date Recorded Sex Assigned at Not on file Legal Sex Female 6:43 PM CORRECTIONAL COUNSELOR/CASE MANAGER Gender Identity Not on file Sexual Orientation Not on file Last Filed Vital Signs Vital Sign Reading Time Taken Comments Blood Pressure 124/75 12/07/2022 12:50 PM CDT Pulse 93 12/07/2022 1:00 PM CDT Temperature 36.6 C (97.8 F) 12/07/2022 11:35 AM CDT Respiratory Rate 20 12/07/2022 12:50 PM CDT Oxygen Saturation 94% 12/07/2022 1:00 PM CDT Inhaled Oxygen Concentration - - Weight 76.2 kg (168 lb) 03/27/2024 10:19 AM CORRECTIONAL COUNSELOR/CASE MANAGER Height 160 cm (5' 3 ) 03/27/2024 10:19 AM CORRECTIONAL COUNSELOR/CASE MANAGER Body Mass Index 29.76 03/27/2024 10:19 AM CORRECTIONAL COUNSELOR/CASE MANAGER Plan of Treatment Not on file Medical Devices Implanted Type Area Director Of Cardiac Rehabilitation Device Identifier Shelf Expiration Date Model / Serial / Lot [employer] Arthrex Dx Fibertak Needle Randolph Suture Sterile Latex Free Ar-[id number] - [id number] Implanted:Qty: 1 on 08/25/2021 by Shreyas Thurman MD at [facility] Right: Wrist [employer] [id number] 06/02/2026 [id number] / / [id number] [employer]/C R Bard Mesh Surgical Mid Anatomical Synthetic Patch 3dmax 4x6in [id number] - [id number] Implanted:Qty: 1 on 12/07/2022 by Tremaine Salomon MD at [facility] [employer]/C R Bard [id number] / / [employer]/C R Bard Mesh Surgical Inguinal Hernia Synthetic Patch 3dmax 4x6in [id number] - [id number] Implanted:Qty: 1 on 12/07/2022 by Tremaine Salomon MD at [facility] [employer]/C R Bard [id number] 11/30/2026 [id number] / / [id number] Procedures Procedure Name Priority Date/Time Associated Diagnosis Comments XR KNEE RIGHT 3 VIEWS Schedule Routine, Read Routine (OP Routine) 03/27/2024 10:02 AM CORRECTIONAL COUNSELOR/CASE MANAGER Right knee pain, unspecified chronicity XR KNEE LEFT 3 VIEWS Schedule Routine, Read Routine (OP Routine) 03/27/2024 10:02 AM CORRECTIONAL COUNSELOR/CASE MANAGER Left knee pain, unspecified chronicity ND ARTHROCENTESIS ASPIR&/INJ MAJOR JT/BURSA W/O US Routine 03/27/2024 10:00 AM CORRECTIONAL COUNSELOR/CASE MANAGER Primary osteoarthritis of left knee ND ARTHROCENTESIS ASPIR&/INJ MAJOR JT/BURSA W/O US Routine 03/27/2024 10:00 AM CORRECTIONAL COUNSELOR/CASE MANAGER Primary osteoarthritis of right knee SCREENING MAMMOGRAM 2D BILATERAL 04/30/2020 12:53 PM CORRECTIONAL COUNSELOR/CASE MANAGER from Last 3 Months or Most Recently Relevant to Health Maintenance Results * XR Knee Right 3 View (03/27/2024 10:02 AM CORRECTIONAL COUNSELOR/CASE MANAGER) Anatomical Region Laterality Modality Lower Extremities, Knee Right Computed Radiography 03/27/2024 3:28 PM CORRECTIONAL COUNSELOR/CASE MANAGER Narrative 03/27/2024 3:29 PM CORRECTIONAL COUNSELOR/CASE MANAGER EXAM DESCRIPTION: XR KNEE RIGHT 3 VIEWS; XR KNEE LEFT 3 VIEWS REASON FOR STUDY: right knee pain left knee pain Bilateral knee pain x 2 months, nki FINDINGS: Three views each knee submitted without comparison. No acute fracture. Alignment is normal. There is mild to moderate bilateral knee osteoarthritis, left greater than right. Small effusions and extensor mechanism enthesophytes are present. IMPRESSION: Mild to moderate bilateral knee osteoarthritis, left greater than right. Small effusions. THIS IS AN ELECTRONICALLY VERIFIED FINAL REPORT 03/27/2024 3:29 PM - Electronically signed by Claudy Flannery M.D. MF: NATI Report ID: [id number] Reading Location: [id number] Procedure Note Claudy Flannery MD - 03/27/2024 EXAM DESCRIPTION: XR KNEE RIGHT 3 VIEWS; XR KNEE LEFT 3 VIEWS REASON FOR STUDY: right knee pain left knee pain Bilateral knee pain x 2 months, nki FINDINGS: Three views each knee submitted without comparison. No acute fracture. Alignment is normal. There is mild to moderatebilateral knee osteoarthritis, left greater than right. Small effusions andextensor mechanism enthesophytes are present. IMPRESSION: Mild to moderate bilateral knee osteoarthritis, left greater than right. Small effusions. THIS IS AN ELECTRONICALLY VERIFIED FINAL REPORT 03/27/2024 3:29 PM - Electronically signed by Claudy Flannery M.D. MF: NATI Report ID: [id number] Reading Location: [place] [id number] Dex Saab DO IMG XR PROCEDURES Final Result * XR Knee Left 3 View (03/27/2024 10:02 AM CORRECTIONAL COUNSELOR/CASE MANAGER) Anatomical Region Laterality Modality Lower Extremities, Knee Left Computed Radiography 03/27/2024 3:28 PM CORRECTIONAL COUNSELOR/CASE MANAGER Narrative 03/27/2024 3:29 PM CORRECTIONAL COUNSELOR/CASE MANAGER EXAM DESCRIPTION: XR KNEE RIGHT 3 VIEWS; XR KNEE LEFT 3 VIEWS REASON FOR STUDY: right knee pain left knee pain Bilateral knee pain x 2 months, nki FINDINGS: Three views each knee submitted without comparison. No acute fracture. Alignment is normal. There is mild to moderate bilateral knee osteoarthritis, left greater than right. Small effusions and extensor mechanism enthesophytes are present. IMPRESSION: Mild to moderate bilateral knee osteoarthritis, left greater than right. Small effusions. THIS IS AN ELECTRONICALLY VERIFIED FINAL REPORT 03/27/2024 3:29 PM - Electronically signed by Claudy Flannery M.D. MF: NATI Report ID: [id number] Reading Location: [id number] Procedure Note Claudy Flannery MD - 03/27/2024 EXAM DESCRIPTION: XR KNEE RIGHT 3 VIEWS; XR KNEE LEFT 3 VIEWS REASON FOR STUDY: right knee pain left knee pain Bilateral knee pain x 2 months, nki FINDINGS: Three views each knee submitted without comparison. No acute fracture. Alignment is normal. There is mild to moderatebilateral knee osteoarthritis, left greater than right. Small effusions andextensor mechanism enthesophytes are present. IMPRESSION: Mild to moderate bilateral knee osteoarthritis, left greater than right. Small effusions. THIS IS AN ELECTRONICALLY VERIFIED FINAL REPORT 03/27/2024 3:29 PM - Electronically signed by Claudy Flannery M.D. MF: NATI Report ID: [id number] Reading Location: [id number] Dex Saab DO IMG XR PROCEDURES Final Result * ND ARTHROCENTESIS ASPIR&/INJ MAJOR JT/BURSA W/O US (03/27/2024 10:00 AM CORRECTIONAL COUNSELOR/CASE MANAGER) Narrative Dex Saab DO - 03/27/2024 10:00 AM CORRECTIONAL COUNSELOR/CASE MANAGER Dex Saab DO 03/27/2024 12:49 PM Large Joint (Hip, Knee, Shoulder) Injection: L knee Performed by: Dex Saab DO Authorized by: Dex Saab DO Large Joint Injection/Aspiration: Consent Given by: Patient Verbal consent obtained: Yes Supporting Documentation: Indications: Pain Procedure Details: Location: Knee Site: L knee Prep: patient was prepped and draped in usual sterile fashion Needle Size: 22 G Approach: Anterolateral Ultrasound guided: No Fluroscopic guidance: No Medications: 4 mL lidocaine 10 mg/mL (1 %); 80 mg triamcinolone 40 mg/mL Aspirate amount (mL): 0 Patient tolerance: Patient tolerated the procedure well with no immediate complications us Dex Saab DO IN CLINIC/BEDSIDE ORDERABLES F inal Result * ND ARTHROCENTESIS ASPIR&/INJ MAJOR JT/BURSA W/O US (03/27/2024 10:00 AM CORRECTIONAL COUNSELOR/CASE MANAGER) Narrative Dex Saab DO - 03/27/2024 10:00 AM CORRECTIONAL COUNSELOR/CASE MANAGER Dex Saab DO 03/27/2024 12:49 PM Large Joint (Hip, Knee, Shoulder) Injection: R knee Performed by: Dex Saab DO Authorized by: Dex Saab DO Large Joint Injection/Aspiration: Consent Given by: Patient Verbal consent obtained: Yes Supporting Documentation: Indications: Pain Procedure Details: Location: Knee Site: R knee Needle Size: 22 G Approach: Anterolateral Ultrasound guided: No Fluroscopic guidance: No Medications: 4 mL lidocaine 10 mg/mL (1 %); 80 mg triamcinolone 40 mg/mL Aspirate amount (mL): 0 Patient tolerance: Patient tolerated the procedure well with no immediate complications Dex Saab DO IN CLINIC/BEDSIDE ORDERABLES F inal Result * Screening Mammogram 2D Bilateral (04/30/2020 12:53 PM CORRECTIONAL COUNSELOR/CASE MANAGER) Anatomical Region Laterality Modality Breast Bilateral Mammography 04/30/2020 1:06 PM CORRECTIONAL COUNSELOR/CASE MANAGER Narrative 04/30/2020 1:53 PM CORRECTIONAL COUNSELOR/CASE MANAGER Patient Name: VIOLET WISEMAN Ordering Dr: Christina Solis D.O.B: 1950 Exam Date: 04/30/20 1253 Age: 69 Sex: Female MR#: [id number] Loc: RADIOLOGY REPORT Order #[id number] [facility] Bilateral Screening Signed - MG BILATERAL DIGITAL SCREENING MAMMOGRAM WITH MEDIOLATERAL OBLIQUE CRANIOCAUDAL: 04/30/2020 The study was acquired using full field digital technology and interpreted from soft copy. CLINICAL: Routine mammogram. Denies any problems today. No personal history of breast cancer. No family history of breast cancer. COMPARISONS: Comparison is made to exams dated: 03/14/2019 mammogram, 08/14/2017 mammogram, and 05/22/2014 mammogram - [place]. BREAST TISSUE: There are scattered areas of fibroglandular density. FINDINGS: No significant masses, calcifications, or other findings are seen in either breast. There has been no significant interval change. IMPRESSION: BI-RAD 1 NEGATIVE There is no mammographic evidence of malignancy. A 1 year screening mammogram is recommended. The patient has been or will be contacted. We recommend annual screening mammography for women at average risk of breast cancer beginning at age 40, based on guidelines of the [employer] (ACR Practice Parameter for the Performance of Screening and Diagnostic Mammography) and [employer]. For women with an elevated risk of breast cancer, please refer to the ACR Practice Parameter for specific screening recommendations. The patient will be entered into a reminder system with a target due date of 1 year for her next screening exam. Electronically signed by: Orville vasquez/fela:04/30/2020 13:53:49 Production Lead: Lizbet Jim (R)), [facility] letter sent: Normal Exam Reading location: BI-RADS: 1 Negative REPORT ELECTRONICALLY SIGNED IN OTHER VENDOR SYSTEM Resulting Agency Comment O Procedure Note Orville Cuellar MD - 04/30/2020 Patient Name: VIOLET WISEMAN Dr: Christina Solis ANP D.O.B: 1950 Exam Date: 04/30/20 1253 Age: 69 Sex: Female MR#: [id number] Loc: RADIOLOGY REPORT Order #[id number] [facility] Bilateral Screening Signed - MG BILATERAL DIGITAL SCREENING MAMMOGRAM WITH MEDIOLATERAL OBLIQUECRANIOCAUDAL: 04/30/2020 The study was acquired using full field digital technology andinterpreted from soft copy. CLINICAL: Routine mammogram. Denies any problems today. No personalhistory of breast cancer. No family history of breast cancer. COMPARISONS: Comparison is made to exams dated: 03/14/2019 mammogram,08/14/2017 mammogram, and 05/22/2014 mammogram - [place]. BREAST TISSUE: There are scattered areas of fibroglandular density. FINDINGS: No significant masses, calcifications, or other findings areseen in either breast. There has been no significant interval change. IMPRESSION: BI-RAD 1 NEGATIVE There is no mammographic evidence of malignancy. A 1 year screeningmammogram is recommended. The patient has been or will be contacted. We recommend annual screening mammography for women at average risk ofbreast cancer beginning at age 40, based on guidelines of the [employer] (ACR Practice Parameter for the Performance of Screening and Diagnostic Mammography) and [employer]. For women with an elevated risk of breast cancer, pleaserefer to the ACR Practice Parameter for specific screening recommendations. The patient will be entered into a reminder system with a target due dateof 1 year for her next screening exam. Electronically signed by: Orville vasquez/fela:04/30/2020 13:53:49 Production Lead: Lizbet THOMPSON (R)(M), [facility] letter sent: Normal Exam Reading location: BI-RADS: 1 Negative REPORT ELECTRONICALLY SIGNED IN OTHER VENDOR SYSTEM Christina Solis NP IMG MAMMO PROCEDURES Final Res ult from Last 3 Months or Most Recently Relevant to Health Maintenance Insurance T MEDICARE T MEDICARE [facility] MEDICARE Care Teams Event Marketing Manager Relationship Specialty Start Date End Date Lanie Razo NP [address] [place] [address] [place] [address] PCP - General Nurse Practitioner 08/23/22 Tremaine Salomon MD [address] [place] [id number] Consulting Physician General Surgery 12/07/22
--- OUTSIDE RECORDS SUMMARY | 2024-04-25 09:55 | XMS_ITS | Encounter Summary ---
Author Organization [facility] Address [address] [place] [address] Care Team Providers Care Laundry Housekeeper Name Role Phone Michael Rodriguez MD Unavailable Lanie Razo [facility] Primary Care Provider + Encounter Details Date Type Department Care Team (Late st Contact Info) Description 07/13/2023 [employer] Message Enc [place] [facility] [place] [facility], [address] [place], [place] [phone] Mel Etienne FNP [address] [facility] [place] [address] [place], [place] [phone] Blood pressure readings after increasing amlodapine to [...] documented in this encounter Plan of Treatment Not on file documented as of this encounter Visit Diagnoses Not on filedocumented in this encounter Care Teams Laundry Housekeeper Relationship Specialty Start Date End Date Lanie Razo FNP- [address] [place] [id number] PCP - General Nurse Practitioner Family 06/05/23 Michael Rodriguez MD [address] [address] EP Grinder Machine Setter CLINICAL CARDIAC ELECTROPHYSIOLOGY 01/27/19 documented as of this encounter
--- OUTSIDE RECORDS SUMMARY | 2024-04-25 09:55 | XMS_ITS | Clinical Summary ---
Author Organization [facility] [address] [facility] Address [address] [place] [address] Care Team Providers Care Lay Out Carpenter Name Role Phone Lanie Razo NP Primary Care Provider + Tremaine Salomon MD Unavailable [phone] Allergies Active Allergy Reactions Criticality Noted Date [...] adiposity 06/28/2011 Sacroiliitis, not elsewhere classified 1 Encounters Date Type Department Care Team Description 03/27/2024 10:00 AM SAP PPM CONSULTANT Office Visit [facility] Orthopedics and Sports Medicine [address] [place] [phone] Dex Saab DO Right knee pain, unspecified chronicity (Primary Dx); Left knee pain, unspecified chronicity; Primary osteoarthritis of left knee; Primary osteoarthritis of right knee; Pes anserine bursitis 03/27/2024 9:55 AM SAP PPM CONSULTANT - 03/27/2024 11:59 PM SAP PPM CONSULTANT Hospital Encounter [facility] 1 DIAG IMG [address] [place] [address] Left knee pain, unspecified chronicity; Right knee pain, unspecified chronicity Discharge Disposition: Discharge to home or self care from Last 3 Months Surgical History Surgery Date Site/Laterality Comments TOE SURGERY CARPAL TUNNEL RELEASE Bilateral POLYPECTOMY laparoscopic uterine FACIAL COSMETIC SURGERY BREAST SURGERY breast lift BRACHIOPLASTY Bilateral ABDOMINOPLASTY TONSILLECTOMY METACARPOPHALANGEAL JOINT ARTHROPLASTY 08/25/2021 Right RT.1ST [facility] ARTHROPLASTY SUPERFICIAL LYMPH NODE BIOPS Y / EXCISION HEMORROIDECTOMY Medical History Medical History Date Comments Hypertension Motion sickness GERD (gastroesophageal reflux disease) Sleep apnea no cpap PONV (postoperative nausea and vomiting) Social History Tobacco Use Types Packs/Day Years [...] on file Legal Sex Female 6:43 PM SAP PPM CONSULTANT Gender Identity Not on file Sexual Orientation Not on file Obstetrics History Last Filed Vital Signs Vital Sign Reading Time Taken Comments Blood Pressure 124/75 12/07/2022 12:50 PM CDT Pulse 93 12/07/2022 1:00 PM CDT Temperature 36.6 C (97.8 F) 12/07/2022 11:35 AM CDT Respiratory Rate 20 12/07/2022 12:50 PM CDT Oxygen Saturation 94% 12/07/2022 1:00 PM CDT Inhaled Oxygen Concentration - - Weight 76.2 kg (168 lb) 03/27/2024 10:19 AM SAP PPM CONSULTANT Height 160 cm (5' 3 ) 03/27/2024 10:19 AM SAP PPM CONSULTANT Body Mass Index 29.76 03/27/2024 10:19 AM SAP PPM CONSULTANT Plan of Treatment Health Maintenance Due Date Last Done Comments Colon Cancer Screening-Colonoscopy 1950 Depression Screening 1950 Hepatitis C Screening 1950 Osteoporosis Screening-Bone Density Scan 1950 Hepatitis B Screening 1968 Zoster Vaccine (1 of 2) 2000 Well Visit 65+ 12/24/2015 Breast Cancer Screening-Mammogram 04/30/2021 04/30/2020, 03/14/2019, 05/22/2014 Influenza Vaccine (#1) 2023 , 12/02/2019, 12/09/2018, Additional history exists Fall Risk Assessment 12/08/2023 12/07/2022 DTaP/Tdap/Td Vaccine (2 - Td or Tdap) 12/26/2023 12/25/2013 Pneumococcal vaccine 65+ Completed 01/02/2020, 09/2018 Medical Devices Implanted Type Area Torpedo Shooter Device Identifier Shelf Expiration Date Model / Serial / Lot Arthrex Inc Arthrex Dx Fibertak Needle Butler Suture Sterile Latex Free Ar-[id number] - [id number] Implanted:Qty: 1 on 08/25/2021 by Shreyas Thurman MD at [facility] Right: Wrist Ar[employer]rex Inc [id number] 06/02/2026 AR-[id number] / / [id number] [employer]ol Inc/C R Bard Mesh Surgical Mid Anatomical Synthetic Patch 3dmax 4x6in [id number] - [id number] Implanted:Qty: 1 on 12/07/2022 by Tremaine Salomon MD at [facility] [employer]/C R Bard [id number] / / [employer]/C R Bard Mesh Surgical Inguinal Hernia Synthetic Patch 3dmax 4x6in [id number] - [id number] Implanted:Qty: 1 on 12/07/2022 by Tremaine Salomon MD at [facility] [employer]/C R Bard [id number] 11/30/2026 [id number] / / [id number] Procedures Procedure Name Priority Date/Time Associated Diagnosis Comments XR KNEE RIGHT 3 VIEWS Schedule Routine, Read Routine (OP Routine) 03/27/2024 10:02 AM SAP PPM CONSULTANT Right knee pain, unspecified chronicity XR KNEE LEFT 3 VIEWS Schedule Routine, Read Routine (OP Routine) 03/27/2024 10:02 AM SAP PPM CONSULTANT Left knee pain, unspecified chronicity IA ARTHROCENTESIS ASPIR&/INJ MAJOR JT/BURSA W/O US Routine 03/27/2024 10:00 AM SAP PPM CONSULTANT Primary osteoarthritis of left knee IA ARTHROCENTESIS ASPIR&/INJ MAJOR JT/BURSA W/O US Routine 03/27/2024 10:00 AM SAP PPM CONSULTANT Primary osteoarthritis of right knee SCREENING MAMMOGRAM 2D BILATERAL 04/30/2020 12:53 PM SAP PPM CONSULTANT from Last 3 Months or Most Recently Relevant to Health Maintenance Results * XR Knee Right 3 View (03/27/2024 10:02 AM SAP PPM CONSULTANT) Anatomical Region Laterality Modality Lower Extremities, Knee Right Computed Radiography 03/27/2024 3:28 PM SAP PPM CONSULTANT Narrative 03/27/2024 3:29 PM SAP PPM CONSULTANT EXAM DESCRIPTION: XR KNEE RIGHT 3 VIEWS; [...] Claudy Flannery M.D. MF: NATI Report ID: [id number] Reading Location: [id number] Procedure Note Claudy Flannery MD - 03/27/2024 [...] Claudy Flannery M.D. MF: NATI Report ID: [id number] Reading Location: [place] [address] us Dex Saab DO IMG XR PROCEDURES Final Result * XR Knee Left 3 View (03/27/2024 10:02 AM SAP PPM CONSULTANT) Anatomical Region Laterality Modality Lower Extremities, Knee Left Computed Radiography 03/27/2024 3:28 PM SAP PPM CONSULTANT Narrative 03/27/2024 3:29 PM SAP PPM CONSULTANT EXAM DESCRIPTION: XR KNEE RIGHT 3 VIEWS; [...] Claudy Flannery M.D. MF: NATI Report ID: [id number] Reading Location: [place] [address] Procedure Note Claudy Flannery MD - 03/27/2024 [...] Claudy Flannery M.D. MF: NATI Report ID: [id number] Reading Location: [place] [address] Dex Saab DO IMG XR PROCEDURES Final Result * IA ARTHROCENTESIS ASPIR&/INJ MAJOR JT/BURSA W/O US (03/27/2024 10:00 AM SAP PPM CONSULTANT) Dex Rico DO - 03/27/2024 10:00 AM SAP PPM CONSULTANT Dex Saab DO 03/27/2024 12:49 PM Large [...] IN CLINIC/BEDSIDE ORDERABLES F inal Result * IA ARTHROCENTESIS ASPIR&/INJ MAJOR JT/BURSA W/O US (03/27/2024 10:00 AM SAP PPM CONSULTANT) Dex Rico DO - 03/27/2024 10:00 AM SAP PPM CONSULTANT Dex Saab DO 03/27/2024 12:49 PM Large [...] Screening Mammogram 2D Bilateral (04/30/2020 12:53 PM SAP PPM CONSULTANT) Anatomical Region Laterality Modality Breast Bilateral Mammography 04/30/2020 1:06 PM SAP PPM CONSULTANT Narrative 04/30/2020 1:53 PM SAP PPM CONSULTANT Patient Name: VIOLET WISEMAN Ordering Dr: Christina Solis D.O.B: 1950 Exam Date: 04/30/20 1253 Age: 69 Sex: Female MR#: [id number] Loc: [facility]#: [id number] RADIOLOGY REPORT Order #[id number] [facility] Bilateral Screening Signed - MG BILATERAL DIGITAL [...] age 40, based on guidelines of the [employer] (ACR Practice Parameter for the Performance of Screening and Diagnostic Mammography) and [employer]. For women with an elevated risk of breast cancer, please refer to the ACR Practice Parameter for specific screening recommendations. The patient will be entered into a reminder system with a target due date of 1 year for her next screening exam. Electronically signed by: Orville Cuellar M.D. ab/penrad:04/30/2020 13:53:49 Supervisor Hospitality House: Lizbet THOMPSON (Brock)(Deshawn), [facility] letter sent: Normal Exam Reading location: BI-RADS: 1 Negative REPORT ELECTRONICALLY SIGNED IN OTHER VENDOR SYSTEM Resulting Agency Comment O Procedure Note Orville Cuellar MD - 04/30/2020 Patient Name: VIOLET WISEMAN Dr: Christina Solis D.O.B: 1950 Exam Date: 04/30/20 1253 Age: 69 Sex: Female MR#: [id number] Loc: RADIOLOGY REPORT Order #[id number] [facility] Bilateral Screening Signed - MG BILATERAL DIGITAL [...] age 40, based on guidelines of the [employer] (ACR Practice Parameter for the Performance of Screening and Diagnostic Mammography) and [employer]. For women with an elevated risk of breast cancer, pleaserefer to the ACR Practice Parameter for specific screening recommendations. The patient will be entered into a reminder system with a target due dateof 1 year for her next screening exam. Electronically signed by: Orville vasquez/fela:04/30/2020 13:53:49 Supervisor Hospitality House: Lizbet Rowe)(Deshawn), [facility] letter sent: Normal Exam Reading location: BI-RADS: 1 Negative REPORT ELECTRONICALLY SIGNED IN OTHER VENDOR SYSTEM us Christina Solis NP IMG MAMMO PROCEDURES Final Res ult from Last 3 Months or Most Recently Relevant to Health Maintenance Insurance T MEDICARE T MEDICARE AET MEDICARE Care Teams Lay Out Carpenter Relationship Specialty Start Date End Date Lanie Razo NP [address] [facility] [place] [address] PCP - General Nurse Practitioner 08/23/22 Tremaine Salomon MD [address] [place] [address] Consulting Physician General Surgery 12/07/22
== END 2024-04-25 09:12 | disposition home or self-care (01) ==
LOC: ANHIMG 09:13
PROVIDERS: PCP Nurse Practitioner Family; Visit Provider Nurse Practitioner Family
DX: Z12.31 Encounter for screening mammogram for malignant neoplasm of breast (principal); R92.8 Other abnormal and inconclusive findings on diagnostic imaging of breast
CPT/HCPCS: 77063; 77067

== ENCOUNTER 2024-05-16 12:38 | Outpatient (CLI) | payer MEDICARE, SELFPAY ==
--- NOTE | ~2024-05-16 | MMUS_ITS ---
EXAMINATION: MM diagnostic roly RT w andrew, US breast RT limited HISTORY: Right breast asymmetry TECHNIQUE: Additional 3-D tomosynthesis images of the right breast were performed and synthetic 2-D i mages were generated. CAD analysis was submitted and interpreted. High resolution limited right breas t ultrasound was performed. COMPARISON: 04/25/2024 BREAST PARENCHYMAL COMPOSITION:Not Dense. There are scattered areas of fibroglandular density. FINDINGS: MAMMOGRAPHIC FINDINGS: Upper, outer right breast asymmetry demonstrates relative effacement with spot compression. No persis tent mass lesion or suspicious distortion evident. No suspicious microcalcification. ULTRASOUND: At the 9:00 position right breast, 1 cm from the nipple, there is a 4 x 3 x 3 mm hypoechoic circumscr ibed round structure most likely small cyst. IMPRESSION: No evidence for malignancy. 4 mm cyst at the 9:00 position right breast, as above. BI-RADS Category 2: Benign finding(s). Reviewed, dictated and finalized at location . IMPRESSION: No evidence for malignancy. 4 mm cyst at the 9:00 position right breast, as ab ove. BI-RADS Category 2: Benign finding(s).
--- OUTSIDE RECORDS SUMMARY | 2024-05-16 12:47 | XMS_ITS | CONTINUITY OF CARE DOCUMENT ---
Author Name zoila cummings Address Unknown Organization [facility] Address [address] [address] [place] [address] Phone [phone] Care Team Providers Care Cigarette And Filter Chief Inspector Name Role Phone Melissa WAHL, [facility] Unavailable [phone] ADARSH CARROLL MD Unavailable [phone] ADARSH CARROLL MD Unavailable INSURANCE PROVIDERS Payer name Policy type / Coverage type [place] red libertarian ID [facility] [id number] 1
--- OUTSIDE RECORDS SUMMARY | 2024-05-16 12:47 | XMS_ITS | Clinical Summary ---
Author Organization [facility] Address [address] [facility] [place] [address] Care Team Providers Care Pastry Finisher Name Role Phone Violette Jones MD Primary Care Provider Source Comments [facility],non-owned Affiliates and Associated Physician Practices is amultiple site organization consisting of ambulatory clinics and hospital sitesin [place], [place], [place] and [place]. This disclosure is being madepursuant to the Care Everywhere program and may not contain all information available regarding this patient. Last updated 17.[facility] Allergies No known active allergies Medications * [...] Comments Blood Pressure 126/84 03/24/2011 2:04 PM SUPERVISOR CHRISTMAS TREE [employer]ARM Pulse 90 03/24/2011 2:04 PM SUPERVISOR [employer]RISTM[employer] TREE [employer]ARM Temperature 36.8 C (98.3 F) 03/24/2011 2:04 PM SUPERVISOR CHRISTM[employer] TREE [employer]ARM Respiratory Rate 16 03/24/2011 2:04 PM SUPERVISOR CHRISTMAS [employer]REE [employer]ARM Oxygen Saturation 100% 03/24/2011 2:04 PM SUPERVISOR CHRISTMAS TREE FARM Inhaled Oxygen Concentration - - Weight 74.8 kg (165 lb) 03/03/2011 2:24 PM SUPERVISOR CHRISTMAS TREE FARM Height 165.1 cm (5' 5 ) 03/03/2011 2:24 PM SUPERVISOR CHRISTMAS TREE FARM Body Mass Index 27.46 03/03/2011 2:24 PM SUPERVISOR CHRISTMAS TREE FARM Plan of Treatment Health Maintenance Due Date [...] to complete this topic MENINGOCOCCAL (Group B) VACC INE SHARED DECISION-MAKING Aged Out No longer eligibl e based on patient's age to complete this topic MENINGOCOCCAL GROUPS A/C/Y/W VACCINE Aged Out No longer eligible b ased on patient's age to complete this topic Care Teams Pastry Finisher Relationship Specialty Start Date End Date Violette Jones MD [address] [place] [address] [place] [phone] PCP - General Family Medicine 02/14/11
--- OUTSIDE RECORDS SUMMARY | 2024-05-16 12:47 | XMS_ITS | Patient Health Summary ---
Author Organization [facility] Address [address] [place] [address] Care Team Providers Care Hotel Office Manager Name Role Phone Violette Jones MD Primary Care Provider [phone] Note from [facility],non-owned Affiliates and Associated Physician Practices is amultiple site organization consisting of ambulatory clinics and hospital sitesin [place], [place], [place] and [place]. This disclosure is being madepursuant to the Care Everywhere program and may not contain all information available regarding this patient. Last updated 17.[facility] [employer] Allergies No known active allergies Medications * [...] Comments Blood Pressure 126/84 03/24/2011 2:04 PM LARRY OPERATOR Pulse 90 03/24/2011 2:04 PM LARRY OPERATOR Temperature 36.8 C (98.3 F) 03/24/2011 2:04 PM LARRY OPERATOR Respiratory Rate 16 03/24/2011 2:04 PM LARRY OPERATOR Oxygen Saturation 100% 03/24/2011 2:04 PM LARRY OPERATOR Inhaled Oxygen Concentration - - Weight 74.8 kg (165 lb) 03/03/2011 2:24 PM LARRY OPERATOR Height 165.1 cm (5' 5 ) 03/03/2011 2:24 PM LARRY OPERATOR Body Mass Index 27.46 03/03/2011 2:24 PM LARRY OPERATOR Procedures * PAIN MANAGEMENT PROCEDURE TIME(Performed 03/24/2011) * PAIN MANAGEMENT PROCEDURE TIME(Performed 03/03/2011) * EMG WITH NERVE CONDUCTION STUDY(Performed 02/24/2011) Performed for Intractable neuropathic pain of lower extremity Results * PAIN MANAGEMENT PROCEDURE TIME (03/24/2011 3:05 PM LARRY OPERATOR) Only the most recent of2 resultswithin the time period is included. Anatomical Region Laterality Modality X-Ray Angiograph y Narrative 03/24/2011 6:02 PM LARRY OPERATOR RT Gertrude(R) 03/24/2011 3:26 PM Fluoroscopically Guided [...] on how to reach the clinic or continuous improvement lead physician at anytime for questions or complaints. [...] on how to reach the clinic or continuous improvement lead physician at anytimefor questions or complaints. The [...] points in the musculature was identified. Using m02-bodyo 1.5 inch needle, I injected 1 cc of a mixture of 5 cc of 1%lidocaine and 5 cc of 0.25% bupivacaine into the following muscles:erector spinae and gluteus minimus. The patient tolerated the procedureand no complications. Patient was given discharge instructions. Claudy Pina MD DIAGNOSTIC IMAGIN G ORDERABLES * EMG WITH NERVE CONDUCTION STUDY (02/24/2011) Destin Burdick MD NEUROLOGY [facility] Teams Hotel Office Manager Relationship Specialty Start Date End Date Violette Jones MD [address] [place] [phone] PCP - General Family Medicine 02/14/11
--- OUTSIDE RECORDS SUMMARY | 2024-05-16 12:47 | XMS_ITS | Clinical Summary ---
Author Organization [facility] Address [address] [place] [address] Phone Care Team Providers Care Film Waxer Name Role Phone Unavailable Primary Care Provider [...] on file Legal Sex Female 6:08 AM CHURCH BUSINESS ADMINISTRATOR Gender Identity Not on file Sexual Orientation [...] SCREENING 03/14/2020 03/14/19, 08/14/2017, 05/22/2014 PNEUMOCOCCAL VACCINE 50+ YEA RS (2 of 2 - PCV) 01/01/2021 01/02/2020 INFLUENZA VACCINE (#1) 2023 0, 12/06/2017, 12/10/2015, Additional history exists DTAP/TDAP/TD VACCINES (2 - T d or Tdap) 12/26/2023 12/25/2013 RSV VACCINE (60+ or ) (1 - 1-dose 75+ series) 2025 Medical Devices Implanted Type Area Senior Credit Analyst Device Identifier Shelf Expiration Date Model / Serial / Lot Tooth-Lower Mouth Advance Directives For more information, please contact: [phone] * Full Code (Latest Code Status on [...]
--- OUTSIDE RECORDS SUMMARY | 2024-05-16 12:47 | XMS_ITS | Encounter Summary ---
Author Organization [facility] Address [address] [place] [address] Care Team Providers Care Certified Public Accountant Name Role Phone Michael Rodriguez MD Unavailable Lanie Razo [facility] Primary Care Provider + Encounter Details Date Type Department Care Team (Late st Contact Info) Description 07/13/2023 BostInno Message Enc [place] [facility] [address] [place], [place] [phone] Mel Etienne FNP [address] [facility] [address] [place], [place] [phone] Blood pressure readings after increasing amlodapine to [...] on filedocumented in this encounter Care Teams Certified Public Accountant Relationship Specialty Start Date End Date Lanie Razo FNP- [address] [place] [address] PCP - General Nurse Practitioner Family 06/05/23 Michael Rodriguez MD [address] [address] EP Shanker Out CLINICAL CARDIAC ELECTROPHYSIOLOGY 01/27/19 documented as of this encounter
--- OUTSIDE RECORDS SUMMARY | 2024-05-16 12:47 | XMS_ITS | Encounter Summary ---
Author Organization [facility] Address [address] [place] [address] Care Team Providers Care Pig Machine Supervisor Name Role Phone Christina Solis NP Primary Care Provider [phone] Michael Rodriguez MD Unavailable Lanie Razo [facility] Primary Care Provider + Lanie Razo [facility] Primary Care Provider + Encounter Details Date Type Department Care Team (Late st Contact Info) Description 10/03/2019 Prep for Procedure [facility] [place], [place] [address] Vadim Wyatt MD [address] [phone] Social History Tobacco Use Types Packs/Day Years [...] DETECTED NOT DETECTED 10/05/2019 10:52 AM CDT [facility] Comment: A Not Detected (negative) test [...] providers and patients using the following websites: https://www.AdTrib.HooftyMatch/home/Covid-19/HCP/QuestIVD/fact- sheet.html https://www.[employer]Trib.HooftyMatch/home/Covid-19/Patients/ QuestIVD/fact-sheet.html This test has been authorized by the FDA under an Emergency Use Authorization (EUA) for use by authorized laboratories. Due to the current public health emergency, [facility] is receiving a high volume of samples [...] about COVID-19 can be found at the [facility] website: www.[employer].HooftyMatch/Covid19. Test performed at [facility] [address] [facility] [place] [address] Director: MADISON WELLINGTON DO,MPH NASOPHARYNGEAL SWAB / Unknown 10/03/2019 2:00 PM CDT us Vadim Wyatt MD MICROBIOLOGY - [facility] SEPIDEH HEREDIA Final Result [facility] [id number] [place] [address] documented in this encounter Visit Diagnoses Diagnosis Encounter for screening colonoscopy- Primary Special screening for malignant neoplasms, colon documented in this encounter Additional Health Concerns Infection Onset Date Last Indicated Resolved Time COVID-19 Rule Out 10/03/2019 10/03/2019 10/05/2019 10:53 AM CDT documented as of this encounter Care Teams Pig Machine Supervisor Relationship Specialty Start Date End Date Christina Solis NP [address] [place] [address] PCP - General NURSE PRACTITIONER 01/24/19 01/02/22 Lanie Razo [facility] [address] [place] [phone] PCP - General NURSE PRACTITIONER 01/03/22 06/04/23 Lanie Razo [facility] [address] [place] [address] PCP - General Nurse Practitioner [facility] 06/05/[address] [facility] [address] EP Chick Sexer CLINICAL CARDIAC ELECTROPHYSIOLOGY 01/27/19 documented as of this encounter
--- OUTSIDE RECORDS SUMMARY | 2024-05-16 12:47 | XMS_ITS | Referral Summary ---
Author Organization [facility] Address [address] [facility] [place] [address] Care Team Providers Care Ob/Gyn Doctor Name Role Phone Violette Jones MD Primary Care Provider [phone] Source Comments [facility],non-owned Affiliates and Associated Physician Practices is amultiple site organization consisting of ambulatory clinics and hospital sitesin [place], [place], [place] and [place]. This disclosure is being madepursuant to the Care Everywhere program and may not contain all information available regarding this patient. Last updated 17.[facility] Allergies No known active allergies Medications * [...] Comments Blood Pressure 126/84 03/24/2011 2:04 PM BARNWORKER GROOM Pulse 90 03/24/2011 2:04 PM BARNWORKER GROOM Temperature 36.8 C (98.3 F) 03/24/2011 2:04 PM BARNWORKER GROOM Respiratory Rate 16 03/24/2011 2:04 PM BARNWORKER GROOM Oxygen Saturation 100% 03/24/2011 2:04 PM BARNWORKER GROOM Inhaled Oxygen Concentration - - Weight 74.8 kg (165 lb) 03/03/2011 2:24 PM BARNWORKER GROOM Height 165.1 cm (5' 5 ) 03/03/2011 2:24 PM BARNWORKER GROOM Body Mass Index 27.46 03/03/2011 2:24 PM BARNWORKER GROOM Plan of Treatment Not on file Care Teams Ob/Gyn Doctor Relationship Specialty Start Date End Date Violette Jones MD [address] [place] [address] [address] [place] [phone] PCP - General Family Medicine 02/14/11
--- OUTSIDE RECORDS SUMMARY | 2024-05-16 12:47 | XMS_ITS | Clinical Summary ---
Author Organization [facility] Address [address] [place] [address] Care Team Providers Care Perl Programmer Name Role Phone Michael Rodriguez MD Unavailable Lanie Razo [facility] Primary Care Provider + Allergies Active Allergy [...] Td or Tdap) 12/26/2023 12/25/2013 PHQ-2 (Physician [place]) 03/05/2024 Colorectal Cancer Screening Colonoscopy (10 Years) [...] the left lateral decubitus position, the Olympus [id number] colonoscope was introduced into the rectum and [...] Health Maintenance Insurance AETNA AETNA Care Teams Perl Programmer Relationship Specialty Start Date End Date Lanie Razo, [facility]- [address] [place] [address] PCP - General Nurse Practitioner Family 06/05/23 Michael Rodriguez MD [place] [address] [place] [address] EP Fixture Relamper CLINICAL CARDIAC ELECTROPHYSIOLOGY 01/27/19
== END 2024-05-16 12:39 | disposition home or self-care (01) ==
LOC: ANHIMG 12:43
PROVIDERS: PCP Nurse Practitioner Family; Visit Provider Nurse Practitioner Family
DX: R92.8 Other abnormal and inconclusive findings on diagnostic imaging of breast (principal); N60.01 Solitary cyst of right breast
CPT/HCPCS: 76642; 77061; 77065; G0279